=== PATIENT | male | born 1955 | race Caucasian/White ===

== ENCOUNTER → 2017-11-14 | Outpatient (CLI) | payer BC, MEDICARE ==
[~2017-11-14] MED LIST: ADVAIR HFA 230M12 GM INH; ALBUTEROL2.5 MG/0.5 INH; ALENDRONATE SOD70 MG PO; AMBIEN 10 MG TA10 MG PO; AMBIEN 5 MG TABL5 M1 PO; ASA5UEC PO; ASPIR 8181 MG PO; ASPIRIN BUFFER325 MG PO; ASPIRIN325; ASPIRIN325 PO; BARIATRIC MULTI VIT PO; BAYER CHEWABLE81 MG PO; BENICAR; BENICAR HCT 401 EACH PO; BENICAR40 MG PO; CARAFATE 1 GM TA1 G1 PO; CEFTIN 250 MG250 MG PO; CLONAZEPAM 1 MG1 M1 PO; CRESTOR; CRESTOR10 MG PO; CRESTOR5 MG PO; DOXYCYCLINE 10100 M1 PO; DULCOLAX5 MG PO; DUONEB 2.5-0.5 M3 ML INH; FARXIGA10 MG PO; FISH OIL 1,001000 M2 PO; FISH OIL 1,2001 EAC3 PO; FLORASTOR 250 MG PO; FLORASTOR250 MG PO; FOLIC ACID1 MG PO; FOSAMAX 70 MG T70 M1; FUROSEMIDE; FUROSEMIDE 80 M80 M1 PO; GLUCOSAMINE-CH1 EA15 PO; GLUCOSAMINE-CH1 EA33 PO; HUMIRA20 MG/0.4 SQ; HYDROCHLOROTHIA25 M1 PO; HYDROCHLOROTHIA25 M2 PO; HYDROCODON-ACE1 EAC4 PO; HYDROCODON-ACE1 EAC5 PO; HYDROCODONE-AP1 EAC1 PO; HYSINGLA ER40 MG PO; IBUPROFEN 800800 M1 PO; IMDUR; ISOSORBIDE MONO30 M1; KLOR-CON 1010 MEQ PO; LASIX 80 MG TAB80 MG PO; LIPITOR 20 MG T20 M1 PO; LOPRESSOR25; METHOTREXATE; METHOTREXATE 22.5 MG PO; MINOCYCLINE HC100 M2; MOTRIN IB200 MG PO; MULTI VITAMIN1 EACH PO; NEURONTIN 300300 M1 PO; NITROGLYCERIN0.4 MG SUBLING; NITROSTAT0.4 MG SL; NORCO 5-325 TA1 EACH PO; NORVASC5 MG PO; OMEGA-31000 M1 PO; OMEPRAZOLE 20 M20 M1 PO; PERCOCET 5-3251 EACH PO; POTASSIUM20 PO; PREDNISONE 10 M10 M1 PO; PREDNISONE 10 M10 MG PO; PREDNISONE 20 M20 M1 PO; PREDNISONE 5 MG5 M1 PO; PRILOSEC 20 MG20 MG PO; PRILOSEC40 MG PO; PROAIR HFA8.5 GM INH; PROBIOTIC1 EAC1 PO; RESTORIL30 MG PO; RITUXAN100 MG/10 IV; SORINE 80 MG TA80 M1 PO; SPIRIVA INH; TOPROL XL50 MG PO; TRAMADOL 50 MG50 MG PO; TYLENOL325 MG PO; VENTOLIN HFA 1818 GM INH; VITAMIN B-12500 MCG PO; VITAMIN D31000 UNI2 PO; XARELTO20 MG PO; XELJANZ5 MG PO; ZOFRAN4 MG PO; ZPAK PO; [UNRECOGNIZED DRUG - OTHER]; [UNRECOGNIZED DRUG - OTHER] PO
--- NOTE | 2017-11-16 09:00 | PAINCON ---
[place] [address] PAIN MANAGEMENT CONSULTATION Name: MATI NELSON Room: [facility].#: [id number] Admission: 11/14/17 Attend Phys: Tao Ji DO Discharge: Date of : 59 Report #: [id number] THIS REPORT FOR: //name// CC: Tao Ho DO DATE OF SERVICE: 11/14/2017 REFERRING PHYSICIAN: Marko Ho D.O. CHIEF COMPLAINT: Generalized joint pain and low back pain. HISTORY OF PRESENT ILLNESS: As you know, the patient is a morbidly obese 62-year-old male who suffers from rheumatoid arthritis, which is fairly significant with multiple changes in all the joints of the upper body and knees. He was referred initially to our service to adjust medications. He has been doing very well with adjustments in therapy. This in conjunction with his weight loss program has improved his pain overall. He returns in request of refills of medications. I advised the patient at this time that we at [facility] feel he is doing well with pain control. We will be returning his care to his PCP at this time for continuation of hydrocodone therapy. This can be provided through his primary care physician or his ophthalmic medical technician who is treating his rheumatologic issues. ALLERGIES: No known drug allergies. CURRENT MEDICATIONS: Aspirin, multivitamin, atorvastatin, clonazepam, folic acid, furosemide, hydrocodone, ibuprofen, Prilosec, potassium chloride, Xarelto, tramadol, probiotic and prednisone. SOCIAL HISTORY: The patient denies tobacco, alcohol, IV or illicit drug use. He is retired, retired years ago, unaccompanied today. IMAGING DATA: No new imaging available. PHYSICAL EXAMINATION: VITAL SIGNS: Blood pressure 134/72, pulse is 50, respiratory rate 16 and unlabored. The patient is 95% on room air, current temperature 98.6 degrees Fahrenheit, height 6 feet, 2 inch tall, weight 301 pounds and BMI calculated 39. GENERAL: Well-developed, well-nourished and well-hydrated exogenously obese 62-year-old male. He appears his stated age, placing current pain score at 7-8/10. HEENT: Normocephalic and atraumatic. Pupils equal, round and reactive to light. Extraocular muscles are intact. EXTREMITIES: Show no clubbing, no [place] [address] PAIN MANAGEMENT CONSULTATION Name: MATI NELSON Room: [facility]#: [id number] Admission: 11/14/17 Attend Phys: Tao Ji DO Discharge: Date of : 59 Report #: [id number] MUSCULOSKELETAL: There are noted deformities secondary to rheumatologic issues in the hands and the elbows, the left elbow greater than right. There is some large effusion in the area. There has also noted pain in the knees with standing. Gait is antalgic. ASSESSMENT: 1. Rheumatoid arthritis. 2. Osteoarthritis. 3. Morbid obesity. 4. Lumbosacral spondylosis without radicular symptoms. 5. Chronic intractable pain. PLAN: 1. The patient returns today in followup visit for medication management. I have advised the patient at this time that he is stabilized on medication. He is doing well with the therapy. We have tried the patient on a long acting medication formulation but we were unable to obtain this medication due to cost restrictions. The patient is a fairly poor coverage from his third green party payer in regards to long acting medications. We kept the patient on hydrocodone 10-325, no more than 6 a day and this appears to be working well for the patient. We have kept the patient on this medication for an extended period of time and it proves the patient is doing well. We recommend the patient return to his PCP for continuation of this therapy. Opioid medications are no different than treatment options for his rheumatologic issues or his underlying anticoagulant therapy and dyslipidemia therapy. He can return to see his PCP who was the original referring physician with stabilized medications for pain control for his rheumatologic issues. 2. We have provided the patient with hydrocodone 10/325 one tab every 3-1/2 hours p.r.n. for pain, #180 releases of today, 4 weeks from today, 8 weeks from today and 3 months' worth of medication. 3. The patient will return to see his PCP or his ophthalmic medical technician for continuation of medication. We at [facility] have adjusted his medications made corrections to the therapy, stabilized him on his dose, which is the request of the original referring physician. This has been completed, we now returning his care to continue the therapy. Certainly if changes need to be made, the patient can return to our clinic. <ELECTRONICALLY SIGNED> By: Tao Ji DO 11/16/17899 31 [id number] Ji DO /nt
== END ==
LOC: M.PC 00:56
DX: M06.862 Other specified rheumatoid arthritis, left knee (principal); M06.861 Other specified rheumatoid arthritis, right knee; M47.817 Spondylosis without myelopathy or radiculopathy, lumbosacral region; G89.29 Other chronic pain; E66.09 Other obesity due to excess calories; M19.90 Unspecified osteoarthritis, unspecified site

== ENCOUNTER 2018-01-05 05:19 | Emergency (ER) | payer BC, MEDICARE ==
[~2018-01-05] VITALS: Ht 188 cm; Wt 132.4 kg
[~2018-01-05 05:19] MED LIST changes: -NEURONTIN 300300 M1 PO; -NORCO 5-325 TA1 EACH PO; -PERCOCET 5-3251 EACH PO; -[UNRECOGNIZED DRUG - OTHER]
[2018-01-05 06:01] LABS: ANION GAP 10 mmol/L (7-16); BUN 18 mg/dL (7-18); CALCIUM 8.9 mg/dL (8.5-10.1); CHLORIDE 105 mmol/L (98-107); CO2 28 mmol/L (21-32); GLUCOSE 97 mg/dL (70-99); SODIUM 143 mmol/L (136-145)
[2018-01-05 06:02] LABS: ABSOLUTE BASOPHILS 0.1 thou/uL (0.0-0.2); ABSOLUTE EOSINOPHILS 0.4 thou/uL (0.0-0.7); ABSOLUTE LYMPHOCYTES 2.1 thou/uL (0.8-5.3); ABSOLUTE MONOCYTES 0.9 thou/uL (0.0-1.2); ABSOLUTE NEUTROPHILS 8.9 thou/uL (1.6-8.1); BASOPHILS 0.9 %; EOSINOPHILS 3.1 %; HEMATOCRIT 40.5 % (42.0-52.0); HEMOGLOBIN 13.5 gm/dL (14.0-18.0); LYMPHOCYTES 16.8 %; MCH 27.9 pg (26.0-34.0); MCHC 33.3 g/dL (28.0-37.0); MCV 83.7 fL (80.0-100.0); MONOCYTES 7.2 %; MPV 7.8 fl. (7.2-11.1); NUCLEATED RBCS 0 /100WBC; PLATELET COUNT* 292 thou/uL (150-400); RBC 4.84 mil/uL (4.50-6.00); RDW-CV 15.3 % (10.5-14.5); WBC 12.4 thou/uL (4.0-11.0)
[2018-01-05 06:03] LABS: INR 1.2; PROTIME 11.3 Seconds (9.20-11.50)
[2018-01-05 06:12] LABS: ALBUMIN 3.2 g/dL (3.4-5.0); ALKALINE PHOSPHATASE 71 U/L (46-116); LIPASE 497 U/L (73-393); NT-PRO BRAIN NAT PEPTIDE 441 pg/mL (<300); SGOT 33 U/L (15-37); SGPT 16 U/L (30-65); TOTAL BILIRUBIN 0.5 mg/dL (<0.1-1.0); TOTAL PROTEIN 7.1 g/dL (6.4-8.2); TROPONIN-I LEVEL <0.06 ng/mL (<0.06)
[2018-01-05 06:15] LABS: POTASSIUM 4.2 mmol/L (3.5-5.1)
--- NOTE | 2018-01-05 09:44 | EKG ---
[place] [address] ELECTROCARDIOGRAM REPORT Name: OMARMATI JADEN Room: [facility]#: [id number] Admission: 01/05/18 Attend Phys: Discharge: Date of : 59 Report #: [id number] THIS REPORT FOR: //name// [facility] ED Test Date: 2018-01-05 Test Time: 05:22:10 Pat Name: MATI NELSON Department: Room: Gender: M Truck Driver'S Offsider: CECI : 1955 Requested By: Joan Ashby Order Number: [id number] MD: Gerry Menchaca Measurements Intervals [place] Rate: 44 P: 7 [place]: 206 QRS: -23 QRSD: 133 T: 25 QT: 468 QTc: 401 Interpretive Statements Sinus bradycardia IVCD, consider incomplete RBBB Baseline wander in lead(s) III Electronically Signed On 01-05-2018 9:44:09 CDT by Gerry Menchaca [email or web address] <ELECTRONICALLY SIGNED> By: Gerry Menchaca MD, [facility] 01/05/18 0944 1 1 Gerry Menchaca MD, FACC /EPI
[2018-01-05] MEDS ORDERED: NORCO 5-325 TA1 EACH PO (10:03)
[2018-01-05] MEDS ORDERED: PERCOCET 5-3251 EACH PO (10:10)
[2018-01-05 10:44] VITALS: BP 152/81
[2018-02-07] MEDS ORDERED: TRAMADOL 50 MG50 MG PO ×2 (10:48→10:58)
[2018-02-07] MEDS ORDERED: HYDROCODON-ACE1 EAC5 PO ×2 (10:48→10:58)
[2018-02-07] MEDS ORDERED: PERCOCET 5-3251 EACH PO ×2 (10:48→10:58)
[2018-02-07] MEDS ORDERED: RITUXAN100 MG/10 IV (11:57)
[2018-04-04] MEDS ORDERED: HYDROCODON-ACE1 EAC5 PO ×2 (10:33→10:35)
[2018-04-04] MEDS ORDERED: TRAMADOL 50 MG50 MG PO (10:35)
[2018-05-30] MEDS ORDERED: TRAMADOL 50 MG50 MG PO (10:19)
[2018-05-30] MEDS ORDERED: HYDROCODON-ACE1 EAC5 PO ×2 (10:19)
[2018-07-25] MEDS ORDERED: TRAMADOL 50 MG50 MG PO (08:21)
[2018-07-25] MEDS ORDERED: HYDROCODON-ACE1 EAC5 PO ×2 (08:21)
[2018-07-25] MEDS ORDERED: NEURONTIN 300300 M1 PO (10:46)
[2018-07-25] MEDS ORDERED: [UNRECOGNIZED DRUG - OTHER] (11:19)
[2018-07-25] MEDS ORDERED: IBUPROFEN 800800 M1 PO (11:20)
== END 2018-01-05 10:45 | disposition home or self-care (01) ==
LOC: M.ERS 05:19
PROVIDERS: Emergency Medicine
DX: R10.13 Epigastric pain (principal); J44.9 Chronic obstructive pulmonary disease, unspecified; M19.90 Unspecified osteoarthritis, unspecified site; I11.0 Hypertensive heart disease with heart failure; I50.9 Heart failure, unspecified; I25.2 Old myocardial infarction; I25.10 Atherosclerotic heart disease of native coronary artery without angina pectoris; I48.91 Unspecified atrial fibrillation; Z96.641 Presence of right artificial hip joint

== ENCOUNTER → 2018-02-07 | Outpatient (CLI) | payer BC, MEDICARE ==
[~2018-02-07] MED LIST changes: +NEURONTIN 300300 M1 PO; +NORCO 5-325 TA1 EACH PO; +PERCOCET 5-3251 EACH PO; +[UNRECOGNIZED DRUG - OTHER]
--- NOTE | 2018-02-15 08:18 | PAINCON ---
[facility] [address] [place] [address] PAIN MANAGEMENT CONSULTATION Name: MATI NELSON Room: [facility].#: [id number] Admission: 02/07/18 Attend Phys: Veronique Velazquez MD Discharge: Date of : 59 Report #: [id number] THIS REPORT FOR: //name// CC: Veronique Ho DO DATE OF SERVICE: 02/07/2018 CHIEF COMPLAINT: "I have got pain in my arm. Some of the screws have come loose and I am going to go to to have it fixed." FOLLOWUP HISTORY: The patient is a 62-year-old gentleman who has been seen in the pain clinic in the past because of chronic pain associated with osteoarthritis. The patient states that he was driving. Noted some worsening of pain and discomfort in his elbow. It appeared that a screw has come loose. He has sought surgical advice from 2 surgeons at . States that in about 2 months, the two surgeons will be able to coordinate their schedule such that they could work on his left arm. He states that they will have to use cadaveric bone. Also, cables may be necessary to help reconstruct his elbow. He rates his pain as 5/10 at this juncture. Finds that use of his current medications of hydrocodone and tramadol with occasional use of OxyContin have been helpful in controlling his pain. The patient states that he has been using Xarelto. This has been provided by his cardiac doctor. He also states that he has been using [id number] ibuprofen. He states that he thinks his cardiac doctor is aware that he is using this while on Xarelto. ALLERGIES: No known drug allergies. CURRENT MEDICATIONS: Aspirin 325 mg 1 tablet daily for heart, Lipitor 20 mg, clonazepam 1 mg at bedtime for anxiety, folic acid 1 mg, Lasix a total of 160 mg daily for fluid retention, hydrocodone 10/325 1 p.o., total of 6 tablets per day, ibuprofen 800 mg b.i.d., Benicar 40 mg daily, Prilosec 20 mg daily, potassium 20 mEq total of 60 mEq daily replacement, prednisone 10 mg daily, Xarelto 20 mg daily, tramadol 50 mg q.8h. p.r.n., multivitamin, probiotic. PAST MEDICAL HISTORY: Rheumatoid arthritis, morbid obesity, atrial fibrillation, herpes zoster, hypertension, nephrolithiasis and tobacco habituation. Chronic obstructive pulmonary disease and history of congestive heart failure. PAST SURGICAL HISTORY: Repair of gangrenous ventral hernia, left arm surgery [place] [address] PAIN MANAGEMENT CONSULTATION Name: LYNYOANDYMATI JADEN Room: [facility]#: [id number] Admission: 02/07/18 Attend Phys: Veronique Velazquez MD Discharge: Date of : 59 Report #: [id number] SOCIAL HISTORY: The patient is on disability and has not worked for 9 years. REVIEW OF SYSTEMS: Fatigue, weakness. A 12-point review, wears glasses, blurred vision, glaucoma/cataracts, hearing loss/ringing in the ears, shortness of breath, heart trouble, chest pain, palpitations, shortness of breath while lying flat, wheezing, varicose veins, lightheadedness, numbness and tingling sensation, insomnia and excessive thirst. LABORATORY DATA: No new laboratory is available at the time of our interview. PAIN CLINIC ASSESSMENT: 1. History of arthritis, has been receiving infusions now, scheduled for followup at [facility]. 2. Height 6 feet 2 inches. Weight 300 pounds, BMI 38.6. 3. VITAL SIGNS: Blood pressure 115/62, pulse 94, respiratory rate 16, room air saturation 94%, temperature 99.1. Pain intensity 5-6/10. 4. Fall risk. The patient has not fallen in the last 3 months. 5. The patient on blood thinner. 6. The patient is on Xarelto for history of atrial fibrillation. States that he is followed by [facility]. 7. History of hypertension, the patient is being treated for hypertension. 8. Opioids greater than 6 weeks. The patient is on opioid greater than 6 weeks. 9. Risk assessment tool. 10. Functional assessment tool. 11. Recreational drug use. The patient denies use of recreational drugs. 12. Tobacco: The patient states he occasionally smokes a cigar. Stopped smoking cigarettes 2 years ago, has a 27-year smoking history, alcohol. Denies other than rare use of alcoholic beverages. PHYSICAL EXAMINATION: GENERAL: The patient is a well-developed, obese white male, appears his stated age. He is alert and oriented x 3. Affect is appropriate. Speech is fluent. HEENT: Normocephalic, atraumatic. Extraocular eye muscles intact. Sclerae nonicteric. Hearing within normal limits. Mucous membranes moist. NECK: Without JVD or bruits. HEART: Somewhat distant tones difficult to hear given the patient's body habitus. LUNGS: Lungs are distant and difficult to hear secondary to the patient's body habitus. ABDOMEN: Protuberant. MUSCULOSKELETAL: Appears to be within normal limits without significant kyphosis, scoliosis or lordosis. The patient's left upper extremity is bandaged from the forearm up into the shoulder area. The patient states that he has this in place to keep the bone/anatomy stable. States that there is a loose screw in the elbow and there is significant pain involved [place] [address] PAIN MANAGEMENT CONSULTATION Name: MATI NELSON Room: [facility].#: [id number] Admission: 02/07/18 Attend Phys: Veronique Velazquez MD Discharge: Date of : 59 Report #: [id number] without radicular symptoms at this juncture. The hands show rheumatological changes with ulnar deviation of his fingers and elbow secondary to prolonged history of arthritic changes. Complains of some pain in his knees. Walks with a slight antalgic gait. IMPRESSION: 1. Left arm pain, low back pain and hip pain secondary to arthritis. 2. Osteoarthritis. 3. Morbid obesity. 4. Lumbosacral spondylosis without radicular symptoms. 5. Chronic intractable pain. RECOMMENDATIONS: We discussed treatment options with the patient. The patient states that he is taking Xarelto because of atrial fibrillation. He is also not taking ibuprofen 800 mg b.i.d. [id number]. He states that his doctor, Dr. Panchal is aware of this. We have asked that he discontinue use of ibuprofen until he truly gets an okay from Dr. Panchal that it is alright to take ibuprofen in conjunction with his Xarelto. The patient states that he is being evaluated at [facility]. Two of the orthopedic doctors are trying to schedule a surgery for him within the next 2 months. He has been given a script for hydrocodone 10/325 mg. The patient will take a total of 6 tablets per day. He has also been given a script for Ultram. He will continue to take this medicine p.r.n. He has been given oxycodone 1 tablet every day p.r.n. extreme pain given that the patient has had some significant changes in the arthritic character of his arm. He will call us if he has any problems with his medications. We would like to thank you for letting us participate in his care. We hope he continues to improve. The patient has signed a contract for opioid management with the pain clinic. <ELECTRONICALLY SIGNED> By: Veronique Velazquez MD 02/15/18 0818 [id number]. Frank Velazquez MD /LEANN
== END ==
LOC: M.PC 02:06
DX: M47.897 Other spondylosis, lumbosacral region (principal); M19.012 Primary osteoarthritis, left shoulder; G89.4 Chronic pain syndrome; E66.01 Morbid (severe) obesity due to excess calories

== ENCOUNTER → 2018-04-04 | Outpatient (CLI) | payer BC, MEDICARE ==
--- NOTE | 2018-04-13 15:18 | PAINCON ---
[address] [address] PAIN MANAGEMENT CONSULTATION Name: MATI NELSON Room: [facility].#: [id number] Admission: 04/04/18 Attend Phys: Veronique Velazquez MD Discharge: Date of : 59 Report #: [id number] THIS REPORT FOR: //name// CC: Veronique Ho DO DATE OF SERVICE: 04/04/2018 FOLLOWUP COMPLAINT: "I had my surgery last week and things are going pretty good." FOLLOWUP HISTORY: The patient is a 62-year-old gentleman who has been seen and followed in the pain clinic. As you recall, he suffers from significant problems with arthritis involving his left elbow. He had surgery a number of years ago. At this juncture, pain had worsened. Over the past 5 years the plates had become less effective. He underwent a surgery last week. Overall, things have improved quite a bit. His surgeon was happy with the outcome. He has full extension of his left arm. He did not have that prior to this. He has been trying to keep his arm elevated. There is some swelling in his hand, but his has looked at the incision. Things seem like they are going well. He would like to continue with his current medications. Overall, he thinks that his pain has been reasonably well controlled with his current medical regimen of hydrocodone 10/325, tramadol and occasional use of Percocet, which was provided for him by his surgeon for postop pain control. ALLERGIES: No known drug allergies. CURRENT MEDICATIONS: Enteric coated aspirin 325 mg, Lipitor 20 mg, clonazepam 1 mg p.o. anxiety, folic acid 1 mg, Lasix 80 mg for fluid retention 160 mg daily, hydrocodone 10/325 one p.o. q. 4 hours p.r.n. pain, Benicar 40 mg daily, Prilosec 20 mg daily, oxycodone 5 mg/325 per surgeon for 4 weeks post-surgery, potassium 20 mEq, 60 total daily, prednisone 10 mg daily, Rituxan 100 mg intravenous q. 6 months, Xarelto 20 mg blood thinner. PAIN CLINIC ASSESSMENT: 1. History of osteoarthritis involving his left arm as well as arthritic changes from rheumatoid involving his hands, right elbow. 2. Height 6 feet 2 inches, weight 299 pounds, BMI is 38. 3. Vital signs: Blood pressure 116/51, heart rate 51, respiratory rate 18, room air saturation 94%, temperature 97.8. Pain score 4/10. 4. Fall risk. The patient has not fallen in the last 3 months. 5. Blood thinner. The patient is on Xarelto. 6. History of hypertension. The patient is being treated for hypertension. 7. Opioid greater than 6 weeks. The patient is on opioid therapy, which he receives from the pain clinic. He also has a few [place] [address] PAIN MANAGEMENT CONSULTATION Name: MATI NELSON Room: [facility]#: [id number] Admission: 04/04/18 Attend Phys: Veronique Velazquez MD Discharge: Date of : 59 Report #: [id number] surgeon, which would be over and above his baseline. 8. Risk assessment tool. 9. Functional assessment tool. 10. Recreational drug use. The patient denies use of recreational drugs. 11. Tobacco: The patient states he occasionally smokes a cigar, stop smoking cigarettes 2 years ago, has a 27-year smoking history. 12. Alcohol. Denies use of alcohol other than on rare occasions. PHYSICAL EXAMINATION: GENERAL: The patient is a well-developed, obese white male, appears his stated age. He is alert and oriented x 3. His affect is appropriate. Speech is fluent. His is with him. HEENT: Normocephalic, atraumatic. Extraocular eye muscles intact. Sclerae nonicteric. Hearing within normal limits. Mucous membranes are moist. The patient's face is reddened around the mouth as well as up in the area of his cheeks. The patient states that he is super sensitive to shaving and has shaved as a result of this. There is redness around his face, which he gets. He is following up with his gem expert. NECK: Without JVD or bruits. HEART: Distant, given the patient's body habitus. LUNGS: Generally clear. EXTREMITIES: Left arm wrapped. Some edema noted in the left hand. Some evidence of ecchymoses in the lower hand as well as color changes consistent with breakdown of hemoglobin trickling down into the deep tendon left hand. ABDOMEN: Protuberant. The patient has a significant hernia in the abdominal area. MUSCULOSKELETAL: The patient is without significant kyphosis, scoliosis or lordosis. Muscle strength in the lower extremities judged to be 5/5 for the major muscle groups. Hands with rheumatological changes with ulnar deviation of his fingers secondary to his prolonged arthritis. Pain in his knees. The patient walks with an antalgic gait. IMPRESSION: 1. Recent left elbow surgery/rebuilt at [facility] -- patient states that his physician who has worked on numerous continence say this is the one of the top 10 worst elbow he had ever seen. He got good and favorable repair. 2. Osteoarthritis. 3. Morbid obesity. 4. History of hiatal hernia. 5. Lumbosacral spondylosis without radicular symptoms. 6. Chronic intractable pain. RECOMMENDATION: We discussed treatment options with the patient. We will continue with his current medical regimen. He will continue with the pain pills, which his physician/orthopedic has provided for the postop pain control. He will continue with his baseline medications as well. [place] [address] PAIN MANAGEMENT CONSULTATION Name: MATI NELSON Room: [facility]#: [id number] Admission: 04/04/18 Attend Phys: Veronique Velazquez MD Discharge: Date of : 59 Report #: [id number] has any problems with his medications. Overall, things seem like they are going reasonably well. He has been given a script for his usual hydrocodone. He takes 6 tablets per day. He will call us again if he has any problems. Hopefully, we will continue to bounce back. He is looking very good. He has continued to move his arm as directed by his physician. We would recommend that he keep his arm elevated above his heart. This will decrease some of the swelling and edema in the lower extremities. They are trying to make sure that he does not get an infection. His said he looked at it today and it looks like it is doing very well. We did not open it up. We would like to thank you for letting us participate in his care. We hope he continues to improve. <ELECTRONICALLY SIGNED> By: Veronique Velazquez MD 04/13/18 1518 1523 [id number]. Frank Velazquez MD /PMT
== END ==
LOC: M.PC 02:47
DX: M47.27 Other spondylosis with radiculopathy, lumbosacral region (principal); M13.822 Other specified arthritis, left elbow; G89.4 Chronic pain syndrome; E66.01 Morbid (severe) obesity due to excess calories

== ENCOUNTER → 2018-05-30 | Outpatient (CLI) | payer BC, MEDICARE ==
--- NOTE | 2018-06-02 08:37 | PAINCON ---
[address] [address] PAIN MANAGEMENT CONSULTATION Name: MATI NELSON Room: [facility]..#: [id number] Admission: 05/30/18 Attend Phys: Veronique Velazquez MD Discharge: Date of : 59 Report #: [id number] THIS REPORT FOR: //name// CC: Veronique Ho DO DATE OF SERVICE: 05/30/2018 CHIEF COMPLAINT: "Here for medications. Things are going pretty well. My elbow is doing really well. First time, I have not had pain since my 20s." FOLLOWUP HISTORY: The patient is a 63-year-old gentleman who has been followed in the Pain Clinic because of chronic pain involving his left hip, right hip, and left arm and neuropathy, all of which are helped with his current medical regimen. The patient has lost quite a bit of weight. As you recall, he has had a gastric sleeve surgery. Feels that things are going reasonably well. He has lost significant amount of weight. He feels that tramadol and hydrocodone are beneficial. He has had no complications with their use. He is quite happy with the left shoulder and left elbow. He has had problems with his elbow since 1979. He is continuing to monitor his activity, trying to maintain his weight loss. States that he has about 15 pounds of skin to be removed. He would like to undergo that surgery in the future. Also, he is having problems with varicosities in his left leg, which are quite large and are problematic on the left thigh, anterior knee, and anterior calf area. ALLERGIES: No known drug allergies. CURRENT MEDICATIONS: Enteric aspirin 325 mg, Lipitor 20 mg, clonazepam 1 mg p.o. anxiety, folic acid 1 mg, Lasix 80 mg for fluid retention 160 mg daily, Prilosec 20 mg, hydrocodone 10/325 one p.o. q. 4-6 hours, Benicar 40 mg, oxycodone 5/325 per surgeon, potassium 20 mEq total of 60 mEq daily, prednisone 10 mg daily, Rituxan 100 mg intravenous q. 6 months, Xarelto 20 mg blood thinner. PAIN CLINIC ASSESSMENT: 1. History of osteoarthritis involving his left arm, arthritic changes involving his hands with deviation of his fingers, elbow arthritic changes, osteoarthritic changes in his knees, osteoarthritic changes in the left hip. 2. Height 6 feet 2 inches, weight 295 pounds, BMI is 38. 3. Vital signs: Blood pressure 144/72, heart rate 51, respiratory rate 16, room air saturation 94%, temperature 98.5, and oxygen saturation again was 94. Pain intensity 6-7. Baseline pain, discomfort usually 5. He notes significant improvement without pain in his left arm for the first time in tens of years. 4. Fall risk. The patient has not fallen. He does need some time to reach stabilization when going from a [place] [address] PAIN MANAGEMENT CONSULTATION Name: MATI NELSON Room: [facility]#: [id number] Admission: 05/30/18 Attend Phys: Veronique Velazquez MD Discharge: Date of : 59 Report #: [id number] 5. Blood thinner. The patient is on Xarelto. 6. Hypertension. The patient is being treated for hypertension. 7. Opioids greater than 6 weeks. The patient is receiving opioid medications through the Pain Clinic and feels that they are helpful. 8. Risk assessment tool. 9. Functional assessment tool. 10. Recreational drug use. The patient denies use of recreational drugs. 11. Tobacco: The patient states that he occasionally smokes a cigar, stopped smoking cigarettes 2 years ago, has a 27-year smoking history. 12. Alcohol: The patient denies use of the alcohol except on rare occasions. PHYSICAL EXAMINATION: GENERAL: The patient is a well-developed, well-nourished white male. Obese with decreasing weight since his gastric bypass surgery. Appears his stated age. He is alert and oriented x 3. His affect is appropriate. Speech is fluent. HEENT: Normocephalic, atraumatic. Extraocular eye muscles intact. Sclerae nonicteric. Hearing within normal limits. Mucous membranes are moist. The patient is doing well. Has less reddening around his face. NECK: Without JVD, adenopathy, or bruits. HEART: Distant heart tones given the patient's body habitus. LUNGS: Clear to auscultation without rhonchi or rales. EXTREMITIES: Left arm is increased in mobility. Has less edema in his hand. He is able to move his hand. He is having less pain and discomfort. MUSCULOSKELETAL: Without significant kyphosis, scoliosis, or lordosis. Muscle strength in the lower extremities judged to be 5-/5 for the major muscle groups. Has pain and discomfort in his right hip as well as in the left hip. Hands note rheumatological changes with ulnar deviation of his fingers secondary to prolonged arthritis. Pain in his knee. The patient has large varicosities involving his left leg in the anterior of his knee and anterior of his calf. IMPRESSION: 1. Left elbow surgery/rebuilt at , doing well with less pain. 2. Osteoarthritis involving his left hip and involving his right hip. 3. Morbid obesity, improved after gastric bypass. 4. History of hiatal hernia. 5. Lumbosacral spondylosis without radicular symptoms. 6. Chronic intractable pain. RECOMMENDATIONS: We discussed treatment options with the patient. At this juncture, he feels that things are going reasonably well. He feels his medications are working. He is not having any problems or concerns. He will continue with his medications. A script for these medications have been renewed. The patient is aware of the possible complications using opioids, which could include tolerance as well as dependence. He feels that the medications are helpful. He is able to remain [place] [address] PAIN MANAGEMENT CONSULTATION Name: OMARMATI JADEN Room: [facility]#: [id number] Admission: 05/30/18 Attend Phys: Veronique Velazquez MD Discharge: Date of : 59 Report #: [id number] continue with his medications. A script for his medications has been written. He will follow up in 2 months. <ELECTRONICALLY SIGNED> By: Veronique Velazquez MD 06/02/18 0837 [id number] [id number]. Frank Velazquez MD /nt
== END ==
LOC: M.PC 04:48
DX: M47.817 Spondylosis without myelopathy or radiculopathy, lumbosacral region (principal); M16.0 Bilateral primary osteoarthritis of hip; E66.01 Morbid (severe) obesity due to excess calories; G89.4 Chronic pain syndrome; Z79.899 Other long term (current) drug therapy

== ENCOUNTER → 2018-07-13 | Outpatient (CLI) | payer BC, MEDICARE | LOC: M.ULTRA 13:00 | DX: S91.102A Unspecified open wound of left great toe without damage to nail, initial encounter (principal); I73.9 Peripheral vascular disease, unspecified; I11.0 Hypertensive heart disease with heart failure; I50.9 Heart failure, unspecified; I48.91 Unspecified atrial fibrillation; J44.9 Chronic obstructive pulmonary disease, unspecified; M06.9 Rheumatoid arthritis, unspecified; E66.01 Morbid (severe) obesity due to excess calories; X58.XXXA Exposure to other specified factors, initial encounter; Y93.89 Activity, other specified; Y92.89 Other specified places as the place of occurrence of the external cause; Y99.8 Other external cause status ==

== ENCOUNTER → 2018-07-25 | Outpatient (CLI) | payer BC, MEDICARE ==
--- NOTE | 2018-08-30 15:56 | PAINCON ---
[address] [address] PAIN MANAGEMENT CONSULTATION Name: MATI NELSON Room: [facility].#: [id number] Admission: 07/25/18 Attend Phys: Veronique Velazquez MD Discharge: Date of : 59 Report #: [id number] THIS REPORT FOR: //name// CC: Veronique Ho DATE OF SERVICE: 07/25/2018 FOLLOWUP: Here for medication renewal. My left great toe seems to be infected. FOLLOWUP HISTORY: The patient is a 63-year-old gentleman who has been followed in the pain clinic because of pain involving his left hip, right hip, left arm and neuropathy. He continues to find these medications are helpful. He has noticed a new problem. His right great toe has some lesion on the bottom. He has noted some increased probability of infection. He has been seen by his primary physician. There is some question about it being a staph infection. He has been followed and evaluated in the wound clinic. Notes that the pain has affected his joints. As you recall, he has a left elbow replacement. Also, has had some other joints replaced. He has had some episodes of dizziness. Rates his pain as a 9/10. Overall, things are going reasonably well. His pain is about 50% improved with his current medical regimen. Notes that pain can be exacerbated by sitting and standing. ALLERGIES: NAPROSYN. CURRENT MEDICATIONS: Enteric coated aspirin 325 mg, Lipitor 20 mg, clonazepam 1 mg p.o., anxiety, folic acid 1 mg, Lasix 80 mg for fluid retention, 160 mg daily, Prilosec 20 mg, hydrocodone 10/325 one p.o. every 4-6 hours p.r.n., Benicar 40 mg, oxycodone 5/325, which were provided by surgeon. He is no longer taking that medication, potassium 20 mEq total of 60 mEq daily, prednisone 10 mg daily, Rituxan 100 mg intravenous every 6 months, Xarelto 20 mg. PAIN CLINIC ASSESSMENT/PQRS: 1. History of osteoarthritis involving his left arm with arthritic changes involving his hands with deviation of his fingers, elbows and arthritic joints. 2. Osteoarthritic changes in his knees, osteoarthritic changes in his hip. The patient does have some rheumatological symptomatology. 3. Height 6 feet 2 inches, weight 304 pounds, BMI is 40. 4. VITAL SIGNS: Blood pressure 137/83, heart rate 49, respiratory rate 16, room air saturation 97%, temperature 98.0. 5. Pain intensity 06/26. 6. Fall risk. The patient has not fallen in the last 3 months. 7. Blood thinner. The patient is on Xarelto. 8. Hypertension. The patient is being treated for hypertension. 9. Opioid therapy greater than 6 weeks. The patient is receiving opioid medications [place] [address] PAIN MANAGEMENT CONSULTATION Name: MATI NELSON Room: [facility]#: [id number] Admission: 07/25/18 Attend Phys: Veronique Velazquez MD Discharge: Date of : 59 Report #: [id number] 10. Risk assessment tool. 11. Functional assessment tool. 12. Recreational drug use: The patient denies. 13. Tobacco: The patient states that he occasionally smokes a cigar. He stopped smoking cigarettes 2 years ago. Has a 27 year smoking history. 14. Alcohol: The patient denies use of alcohol except on rare occasions. PHYSICAL EXAMINATION: GENERAL: The patient is well-developed, well-nourished white male. Obese with a decrease in weight since his gastric bypass. The patient appears his stated age. He is alert and oriented x3. His affect is appropriate. Speech is fluent. HEAD, EYES, EARS, NOSE, AND THROAT: Normocephalic, atraumatic. Extraocular eye muscles intact. Sclerae nonicteric. Hearing is within normal limits. Mucous membranes are moist. The patient is doing reasonably well. Has a left reddening around his face. NECK: Without JVD, adenopathy, or bruits. HEART: Regular rate and distant tones. Given the patient's body habitus. LUNGS: Clear to auscultation without rhonchi or rales. EXTREMITIES: Lower extremities, left arm has increased mobility. He is able to straighten it out to 180 degrees there about. MUSCULOSKELETAL: Without significant kyphosis, scoliosis or lordosis. Muscle strength in the lower extremity, 5-/5 for the major muscle groups. The patient has pain and discomfort in his right hip as well as the left hip, the hands, no rheumatological changes with ulnar deviation of his finger secondary to arthritis. 1. Knee pain. 2. Varicosities of the leg, particularly on the left. 3. The patient has a somewhat ulcerated looking lesion on his great toe, this is on the left foot. IMPRESSION: 1. Acute on chronic joint pain. 2. New problem on the left great toe. Possible staph. 3. Morbid obesity, improved by gastric bypass. 4. History of hiatal hernia. 5. Lumbar spondylosis without radicular symptoms. 6. Chronic intractable pain. RECOMMENDATION: We discussed treatment options with the patient. At this juncture, his biggest concern is that of the lesion on his left great toe. He has had a history of staph infections in the past. He is working with [facility] to be evaluated. The hope is that they are able to settle this down. The patient does have hip implants and his hips as well as in his left elbow. He will be pretty catastrophic should the skin infected. He will continue with his hydrocodone and tramadol. A script for these medications have been written, [place] [address] PAIN MANAGEMENT CONSULTATION Name: MATI NELSON Room: [facility]#: [id number] Admission: 07/25/18 Attend Phys: Veronique Velazquez MD Discharge: Date of : 59 Report #: [id number] Ultram 50 mg 1 p.o. t.i.d., hydrocodone 10 mg 1 p.o. every 4 hours p.r.n., quantity 180 been written. The patient will call us if he has any problems or concerns. He will continue with gabapentin, Neurontin 300 mg 1 p.o. t.i.d. We would like to thank you for letting us to participate in his care. We hope he continues to improve. <ELECTRONICALLY SIGNED> By: Veronique Velazquez MD 08/30/18 1556 1026 1106N. Frank Velazquez MD /LEANN
== END ==
LOC: M.PC 04:31
DX: M25.552 Pain in left hip (principal); M25.551 Pain in right hip; M79.602 Pain in left arm; E66.01 Morbid (severe) obesity due to excess calories; M47.26 Other spondylosis with radiculopathy, lumbar region; G89.4 Chronic pain syndrome

== ENCOUNTER → 2018-10-03 | Outpatient (CLI) | payer BC, MEDICARE ==
--- NOTE | ~2018-10-03 | PAINCON ---
[address] [address] PAIN MANAGEMENT CONSULTATION Name: MATI NELSON Room: [facility].#: [id number] Admission: 10/03/18 Attend Phys: Veronique Velazquez MD Discharge: Date of : 59 Report #: [id number] THIS REPORT FOR: //name// CC: Veronique Ho DATE OF SERVICE: 10/03/2018 PRIMARY CARE PHYSICIAN: Marko Ho DO CHIEF COMPLAINT: Here for medication renewal. HISTORY: The patient is a 63-year-old gentleman who has been followed in the pain clinic. As you recall, he has significant problems with his pain control. He has pain in his left hip, right hip, left arm and suffers from neuropathy. Continues to find his medications helpful. He had been treated in the past because of a staph infection. As you may recall, he had his left elbow replaced. Overall, that is working reasonably well. He has returned today for renewal of his medications. Finds that the hydrocodone, tramadol and gabapentin continue to be helpful. Rates his pain as an 8/10 at this juncture. ALLERGIES: NAPROSYN. CURRENT MEDICATIONS: Enteric coated aspirin 325 mg, Lipitor 20 mg, clonazepam 1 mg p.o., anxiety, Folic acid 1 mg, Lasix 80 mg, 160 mg daily, Prilosec 20 mg, hydrocodone 10/325 one p.o. 4-6 hours, Benicar 40 mg, potassium 20 mEq, a total of 60 mEq daily, prednisone 10 mg daily, Rituxan 100 mg intravenous every 6 months, Xarelto 20 mg. PAIN CLINIC ASSESSMENT/PQRS: 1. The patient has a history of osteoarthritis involving his left arm with arthritic changes. Has significant arthritic changes and deviation in his fingers secondary to arthritis. Has osteoarthritic changes in his knee. The patient has rheumatologic serology. 2. Height 6 feet 2 inches, weight 314 pounds, BMI 40. 3. VITAL SIGNS: Blood pressure 135/71, heart rate 43, respiratory rate ____, room air saturation 93%. Temperature 97.4. 4. Pain intensity 05/26. 5. Fall risk. The patient has not fallen in the last 3 months. 6. Blood thinner. The patient is on Xarelto. 7. Hypertension. The patient is being treated for hypertension. 8. Opioids greater than 6 weeks. The patient is receiving his medications from [facility] clinic. 9. Risk assessment tool, moderate for opioid use. 10. Functional assessment tool. 11. Recreational drug use. The patient denies [place] [address] PAIN MANAGEMENT CONSULTATION Name: MATI NELSON Room: [facility]#: [id number] Admission: 10/03/18 Attend Phys: Veronique Velazquez MD Discharge: Date of : 59 Report #: [id number] 12. Tobacco: The patient occasionally smokes a cigar. Stopped smoking cigarettes 2 years ago. Has 27-year smoking history. Reminded the patient of benefits of smoking cessation. 13. Alcohol: The patient denies use of alcohol except on rare occasions. 14. Knee pain. 15. Varicosities of leg. PHYSICAL EXAMINATION: GENERAL: The patient is well-developed, well-nourished white male. Appears his stated age. He is alert and oriented x 3. Has had a gastric bypass in the past. He continues to monitor his weight. He is alert and oriented x 3. Speech is fluent. HEENT: Normocephalic, atraumatic. Extraocular eye muscles intact. Sclerae nonicteric. Mucous membranes moist. The patient has some reddening of his face. NECK: Without JVD, adenopathy or bruits. HEART: Regular rate. Distant heart tones. Difficult to appreciate secondary to the patient's body habitus. LUNGS: Clear to auscultation without rhonchi or rales. EXTREMITIES: Upper extremity muscle strength. The patient is able to straighten his left arm ____ to about 180 degrees. MUSCULOSKELETAL: Without significant kyphosis, scoliosis or lordosis. The patient has some changes in his hands, which are compatible with rheumatological changes with ulnar deviation of his finger secondary to the arthritis. IMPRESSION: 1. Acute on chronic joint pain. 2. Morbid obesity, improved by gastric bypass. 3. Hiatal hernia. 4. Lumbar spondylosis without radicular symptoms. 5. Chronic intractable pain treated with chronic medication. RECOMMENDATIONS: We discussed treatment options with the patient. At this juncture, we will continue with his medications. A script for his medications of gabapentin 300 mg 1 p.o. t.i.d., hydrocodone 10/325 one p.o. q.3-1/2 hours p.r.n., total 180 pills. Tramadol 50 mg 1 p.o. t.i.d. The patient will call if he has any concerns. We would like to thank you for letting us participate in his care. We hope he continues to improve. By: [id number]. Frank Velazquez MD /PMT
== END ==
LOC: M.PC 09-19 05:23
DX: M47.816 Spondylosis without myelopathy or radiculopathy, lumbar region (principal); G89.4 Chronic pain syndrome; E66.01 Morbid (severe) obesity due to excess calories; K44.9 Diaphragmatic hernia without obstruction or gangrene; Z79.899 Other long term (current) drug therapy; Z68.41 Body mass index [BMI] 40.0-44.9, adult

== ENCOUNTER → 2018-11-28 | Outpatient (CLI) | payer OTHER, MEDICARE ==
--- NOTE | ~2018-11-28 | PAINCON ---
[address] [address] PAIN MANAGEMENT CONSULTATION Name: MATI NELSON [facility]#: [id number] Admission: 11/28/18 Attend Phys: Veronique Velazquez MD Discharge: Date of : 59 Report #: [id number] THIS REPORT FOR: //name// CC: Veronique Ho DATE OF SERVICE: 11/28/2018 CHIEF COMPLAINT: Still having some pain and I am here for medication renewal. FOLLOWUP HISTORY: The patient is a 63-year-old old gentleman who has a significant history for arthritis. He has had quite a bit of joint pain. Has some right knee pain at this juncture. Notes that it is very painful. He did have an injection a couple of weeks ago. Feels that may be somewhat beneficial. He rates his pain as 7/10. Is concerned about having right knee surgery. He has a number of other items he would consider having surgery on includes: 1. Right knee. 2. Loose skin. 3. Hernia repair. 4. Cholecystectomy. He is trying to prioritize which would be the most helpful. The patient did try CBD oil. He did not feel that was very helpful. States that he uses 300 mg dosing. He states that his daughter stands a lot and had swelling in her lower extremities. She used the 900 mg dosing, but he is not sure for that amount ____ going to be effective. He would like to continue with his medications of hydrocodone. ALLERGIES: NAPROSYN. MEDICATIONS: Enteric coated aspirin 325 mg, Lipitor 20 mg, clonazepam 1 mg, anxiety. Folic acid 1 mg, Lasix 80 mg, 160 mg daily, Prilosec 20 mg, hydrocodone 10/325 q. 4-6 hours, Benicar 40 mg, potassium 20 mEq, total of 60 mEq daily, prednisone 10 mg daily, Rituxan 100 mg intravenous every 6 months, and Xarelto 20 mg. PAIN CLINIC ASSESSMENT AND PQRS: 1. The patient has a history of osteoarthritis involving his left arm with arthritic changes as well as arthritic changes in his right knee. Has some deviation of his fingers to the ulnar side, which is typical for rheumatoid arthritis. 2. Osteoarthritis changes in his knee. The patient recently had an injection in the knee. 3. Height 6 feet 2 inches, weight 316 pounds, BMI is 39. 4. Vital signs: Blood pressure 142/90, heart rate 52, respiratory rate 16, room air saturation 95%. [place] 99.3. [place] [address] PAIN MANAGEMENT CONSULTATION Name: MATI NELSON Room: [facility]#: [id number] Admission: 11/28/18 Attend Phys: Veronique Velazquez MD Discharge: Date of : 59 Report #: [id number] 5. Pain intensity 7/10. 6. Fall history: The patient has not fallen. He does walk with use of his cane. He feels that his knees are grinding together when he is walking. 7. Blood thinner. The patient is on Xarelto. 8. Hypertension. The patient is being treated for hypertension. 9. Opioids therapy greater than 6 weeks. The patient receives this medication from [facility], pain clinic. 10. Risk assessment tool. 11. Functional assessment tool. 12. Recreational drug use. The patient denies use of recreational drug use. 13. Tobacco: The patient does smoke cigars. We explained the use of tobacco and its effect on the circulatory system. 14. Alcohol: The patient denies use of alcohol. PHYSICAL EXAMINATION: GENERAL: The patient is a well-developed, well-nourished, obese white male, appears his stated age. He is alert and oriented x 3. He has had gastric bypass in the past. Continues to monitor his weight. Alert and oriented x 3. HEENT: Normocephalic, atraumatic. Extraocular eye muscles are intact. Sclerae nonicteric. Mucous membranes are moist. NECK: Without adenopathy or JVD. HEART: Regular rate, distant tones difficult to appreciate secondary to the patient's body habitus. LUNGS: Generally clear, without rhonchi or rales. EXTREMITIES: Upper extremity muscle strength is judged to be 5-/5 for the major muscle groups. The patient is able to straighten his right arm to 180 degrees. This is new since his surgery. MUSCULOSKELETAL: Without significant kyphosis, scoliosis, or lordosis. The patient has changes in his hands comparable to rheumatological changes with ulnar deviation of his finger secondary to his arthritis. IMPRESSION: 1. Acute on chronic joint pain. 2. Morbid obesity, improved after gastric bypass. 3. Hiatal hernia. 4. Gallbladder disease. 5. Excessive skin. 6. Right knee problems. RECOMMENDATIONS: We discussed treatment options with the patient. At this juncture, we will continue with his medications. A script for his medications of gabapentin 300 mg 1 p.o. t.i.d., hydrocodone 10/325 one q.3-4 hours total of 180 pills, and tramadol 1 p.o. t.i.d. The patient is considering his surgical options. He does have a problem with his gallbladder. Might be a good idea to take the gallbladder out first. If he should develop a cholecystitis of some sort and ____ his elbow, hip, or his new knee that might be more problematic. [facility] [address] [place] [address] PAIN MANAGEMENT CONSULTATION Name: MATI NELSON Room: [facility]#: [id number] Admission: 11/28/18 Attend Phys: Veronique Velazquez MD Discharge: Date of : 59 Report #: [id number] He could then consider whether or not to have the excess skin removed and the knee replaced. We would like to thank you for letting us participate in his care. We hope he continues to improve. By: [id number]. Frank Velazquez MD /nt
== END ==
LOC: M.PC 11:10
DX: M25.561 Pain in right knee (principal); E66.01 Morbid (severe) obesity due to excess calories; K44.9 Diaphragmatic hernia without obstruction or gangrene; K82.9 Disease of gallbladder, unspecified; I25.10 Atherosclerotic heart disease of native coronary artery without angina pectoris; J44.1 Chronic obstructive pulmonary disease with (acute) exacerbation

== ENCOUNTER → 2019-01-23 | Outpatient (CLI) | payer OTHER, MEDICARE ==
[~2019-01-23] MED LIST changes: +PENNSAID2 GM TOP
--- NOTE | ~2019-01-23 | PAINCON ---
[address] [address] PAIN MANAGEMENT CONSULTATION Name: MATI NELSON Room: [facility].#: [id number] Admission: 01/23/19 Attend Phys: Veronique Velazquez MD Discharge: Date of : 59 Report #: [id number] THIS REPORT FOR: //name// CC: Veronique Ho DATE OF SERVICE: 01/23/2019 PRIMARY CARE PHYSICIAN: Marko Ho DO CHIEF COMPLAINT: Pain and rheumatoid arthritis. HISTORY: The patient is a 63-year-old gentleman who has been followed in the pain clinic. As you recall, he has significant arthritis. It involves his arms as well as his knee and elbows. He has returned for renewal of his medications. He rates his pain as 6-7/10 at this point. He feels his right knee is very painful. He has been using his anti-inflammatory medications. As you may recall, he had a right knee replacement. He tried gabapentin. He is not using it at this juncture. He was not sure that it provided a significant amount of pain benefit. Feels that the tramadol, hydrocodone are still helpful. Notes his pain is exacerbated with going from a sitting to a standing activity as well as activities of daily living. ALLERGIES: NAPROSYN. CURRENT MEDICATIONS: Enteric coated aspirin 325 mg, Lipitor 20 mg, clonazepam 1 mg for anxiety, folic acid 1 mg, Lasix 160 mg daily, Prilosec 20 mg, hydrocodone 10/325 q. 6 hours p.r.n., Benicar 40 mg, potassium 20 mEq, total of 60 mEq daily, prednisone 10 mg daily, Rituxan 100 mg intravenously q. 6 months, and Xarelto 20 mg. PAIN CLINIC ASSESSMENT/PQRS: 1. The patient has osteoarthritis involving his left arm, has had surgery on this. Also, has had arthritic changes in his right knee. Has some deviation of the fingers associated with the rheumatoid arthritis. 2. Osteoarthritis changes in his knee. Had an injection in his knee in the past. 3. Height 6 feet 2 inches, weight 312 pounds. BMI is 40. 4. VITAL SIGNS: Blood pressure 124/68, heart rate 47, respiratory rate 20, room air saturation is 98%. 5. Pain intensity is 6-7/10. 6. Fall risk. The patient has not fallen in the last 3 months. 7. Blood thinner. The patient is on a blood thinning medication, Xarelto for atrial fibrillation. 8. Hypertension. The patient is being treated for hypertension. 9. Opiates greater than 6 weeks. The [place] [address] PAIN MANAGEMENT CONSULTATION Name: MATI NELSON Room: [facility]#: [id number] Admission: 01/23/19 Attend Phys: Veronique Velazquez MD Discharge: Date of : 59 Report #: [id number] source. 10. Risk assessment tool, low for opioid use. 11. Functional assessment too. 12. Recreational drug use. The patient denies use of recreational drugs. 13. Tobacco: The patient states that he smokes cigars. 14. Alcohol: The patient uses rarely. PHYSICAL EXAMINATION: GENERAL: The patient is a well-developed, well-nourished white male. He is obese. He appears his stated age. He is alert and oriented x 3. His affect is appropriate. Speech is fluent. HEENT: Normocephalic, atraumatic. Extraocular eye muscles intact. Sclerae nonicteric. Mucous membranes are moist. NECK: Without adenopathy or JVD. HEART: Regular rate and distant tones. LUNGS: Clear to auscultation without rhonchi or rales. EXTREMITIES. Upper extremity muscle strength is judged to be 5-/5 on the right upper extremity. The patient has noted increased movement of his right arm to 180 degrees since his surgery. MUSCULOSKELETAL: The patient without significant scoliosis, kyphosis or lordosis. Does have some changes in his hands consistent with rheumatological changes with deviation of his fingers in the ulnar direction. IMPRESSION: 1. Acute on chronic joint pain. 2. Morbid obesity, improved after gastric bypass. 3. Hiatal hernia. 4. Gallbladder disease. 5. Excessive skin. 6. Right knee pain. RECOMMENDATION: We discussed treatment options with the patient. At this juncture, we will continue with his medications. He did try CBD oil. He did not feel that really provided a significant amount of improvement. He would like to continue with his current medications of gabapentin 300 mg 1 p.o. t.i.d., hydrocodone 10/325 one p.o. q. 3-4 hours, tramadol 1 p.o. t.i.d. A script for his medications have been rewritten. He will follow up in the future. Keeps his medications in a guarded area. He is aware that opioid medications can become less effective over a period of time secondary to intolerance. One could also develop a dependence on these medications secondary to their ability cause dependency. He feels that the medications are working reasonably well and would like to continue. Scripts have been released. By: [id number]. MD TOREY Washington
== END ==
LOC: M.PC 05:01
DX: G89.29 Other chronic pain (principal); M25.522 Pain in left elbow; M25.521 Pain in right elbow; M17.11 Unilateral primary osteoarthritis, right knee; M19.041 Primary osteoarthritis, right hand; I10 Essential (primary) hypertension; K44.9 Diaphragmatic hernia without obstruction or gangrene; F17.210 Nicotine dependence, cigarettes, uncomplicated; Z88.8 Allergy status to other drugs, medicaments and biological substances; Z79.82 Long term (current) use of aspirin; Z79.899 Other long term (current) drug therapy; Z79.891 Long term (current) use of opiate analgesic

== ENCOUNTER → 2019-03-20 | Outpatient (CLI) | payer OTHER, MEDICARE ==
--- NOTE | ~2019-03-20 | PAINCON ---
[address] [address] PAIN MANAGEMENT CONSULTATION Name: MATI NELSON Room: [facility].#: [id number] Admission: 03/20/19 Attend Phys: Veronique Velazuqez MD Discharge: Date of : 59 Report #: [id number] THIS REPORT FOR: //name// CC: Veronique Ho DATE OF SERVICE: 03/20/2019 CHIEF COMPLAINT: "I have had my knee replaced and things are getting better." FOLLOWUP HISTORY: The patient is a 63-year-old gentleman who has been followed in the pain clinic. As you may recall, he has significant problems with arthritis. Had some problems with his left elbow. He underwent surgery and has gleaned benefit from that. He recently underwent surgery involving his right knee. He has noticed that has improved. He is having pain in his left hip and left joint. Notes that the right knee, which had surgery on 02/15/2019, continues to improve. He also has some problem with his left great toe. He states that it is stiff and is locked in position. He continues to have the sharp pain in his hip. Feels that it might be secondary to some of the arthritic problems he is having. He is going to consider resuming use of biological agents to help with his arthritis. He has returned today for renewal of his medications. He feels that the hydrocodone and tramadol are helpful. ALLERGIES: NAPROSYN. CURRENT MEDICATIONS: Enteric coated aspirin 325 mg, Lipitor 20 mg, clonazepam 1 mg for anxiety, folic acid 1 mg, Lasix 160 mg daily, ____ 20 mg, hydrocodone 10/325 q. 6 hours p.r.n., Benicar 40 mg; potassium 20 mEq, total of 60 mEq daily; prednisone 10 mg daily, Rituxan 100 mg intravenous q. 6 months, Xarelto 20 mg. PAIN CLINIC ASSESSMENT AND PQRS: 1. The patient has osteoarthritis involving his left arm. He has had surgery, has arthritic changes in his right knee is status post right knee replacement. 2. Osteoarthritis involving his knees. The patient is also being treated for rheumatoid arthritis. 3. Height 6 feet 2 inches, weight 301 pounds, BMI is 38.9. 4. VITAL SIGNS: Blood pressure 114/60, heart rate 50, respiratory rate 16, room air saturation 98%, temperature 97.8. 5. Pain intensity 8-9/10. 6. Fall history: The patient has not fallen in the last 3 months. 7. Blood thinner. The patient is on a blood thinning medication. He takes Xarelto for history of atrial fibrillation. 8. Hypertension. The patient is being treated for hypertension. 9. Opioids greater than 6 weeks. The patient received medication from one source, [place] [address] PAIN MANAGEMENT CONSULTATION Name: MATI NELSON [id number] Admission: 03/20/19 Attend Phys: Veronique Velazquez MD Discharge: Date of : 59 Report #: [id number] 10. Risk assessment tool, low for opioid use. 11. Recreational drug use. The patient denies use of recreational drugs. 12. Tobacco: The patient states that he does smoke a cigar. 13. Alcohol: The patient denies other than rare use of alcoholic beverages. PHYSICAL EXAMINATION: GENERAL: The patient is a well-developed, well-nourished white male. He is obese. He appears his stated age. He is alert and oriented x 3. His affect is appropriate. Speech is fluent. HEENT: Normocephalic, atraumatic. Extraocular eye muscles intact. Sclerae nonicteric. Mucous membranes moist. NECK: Without adenopathy or JVD. HEART: History of atrial fibrillation, distant tones. LUNGS: Clear to auscultation without rhonchi or rales. EXTREMITIES: Upper extremity muscle strength is judged to be 5-/5 on the right and 4+ on the left. MUSCULOSKELETAL: Without significant scoliosis, kyphosis or lordosis. The patient's hand show chronic rheumatological changes with deviation of the fingers in the ulnar direction. IMPRESSION: 1. Acute on chronic pain. 2. Morbid obesity, improved after gastric bypass. 3. Hiatal hernia. 4. Gallbladder disease. 5. Excessive skin. 6. Right knee pain, status post right knee replacement. RECOMMENDATIONS: We discussed treatment options with the patient. At this juncture, we will continue with his medications. He feels that the pain has improved as a result of his surgeries. He finds that the tramadol, which he is using is beneficial, he continues to take 1 tablet p.o. t.i.d. Finds that the hydrocodone 10/325 one p.o. q. 4 hours p.r.n., continues to be helpful. Also, feels that overall he is able to do more. We would like to thank you for letting us participate in his care. We hope he continues to improve. By: [id number]. Frank Velazquez MD /PMT
== END ==
LOC: M.PC 05:11
DX: G89.29 Other chronic pain (principal); M25.561 Pain in right knee; M25.522 Pain in left elbow; E66.09 Other obesity due to excess calories; K44.9 Diaphragmatic hernia without obstruction or gangrene; K82.9 Disease of gallbladder, unspecified; Z96.651 Presence of right artificial knee joint; Z68.38 Body mass index [BMI] 38.0-38.9, adult

== ENCOUNTER → 2019-05-15 | Outpatient (CLI) | payer OTHER, MEDICARE ==
--- NOTE | ~2019-05-15 | PAINCON ---
[address] [address] PAIN MANAGEMENT CONSULTATION Name: MATI NELSON Room: [facility].#: [id number] Admission: 05/15/19 Attend Phys: Veronique Velazquez MD Discharge: Date of : 59 Report #: [id number] THIS REPORT FOR: //name// CC: Veronique Ho DATE OF SERVICE: 05/15/2019 CHIEF COMPLAINT: Here for medication renewal and medication management. HISTORY: The patient is a 64-year-old gentleman who has been followed in the pain clinic because of chronic pain. He suffers from rheumatoid arthritis. He has numerous joints, which are affected. Elbows have been quite problematic. The patient recently had a right knee replacement. He feels that has improved. He had surgery on 02/15/2019. He did have increased pain about 3 days ago. He rated it as an 8/10 at that point. Weather has changed somewhat and he rates his pain today as a 5. He has some left hip discomfort. He has tried to improve his leg pain by getting new shoes. States that he has a left foot insole, it was quite expensive. He used it to help decrease some of the pain on his big toe. He would like to have his medications renewed. He may consider an injection in his left hip in the future. He states that he has osteoarthritis in the left hip. ALLERGIES: NAPROSYN. CURRENT MEDICATIONS: Enteric-coated aspirin 325 mg, Lipitor 20 mg, clonazepam 1 mg for anxiety, folic acid 1 mg, Lasix 160 mg daily, hydrocodone 10/325 mg q. 6 hours, Benicar 40 mg, potassium 20 mEq, total of 60 mEq daily, prednisone 10 mg, Rituxan 200 mg intravenous q. 6 months and Xarelto 20 mg. PAIN CLINIC ASSESSMENT/PQRS: 1. The patient has osteoarthritic changes involving his left elbow and right elbow. Also, he has osteoarthritic component in his right knee. He has some osteo complaints in his left hip as well. 2. Height 6 feet 2 inches, weight 312 pounds, BMI is 40.6. 3. Vital Signs: Blood pressure 116/69, heart rate 50, respiratory rate 18, room air saturation 95%. 4. Pain intensity is 5/10. 5. Blood thinner. The patient is on a blood thinning medication. 6. Hypertension. The patient is being treated for hypertension. 7. Opioids greater than 6 weeks. The patient receives medication from one source, the pain clinic. 8. Risk assessment tool, low for opioid use. 9. Recreational drug use. The patient denies use of recreational drugs. 10. Tobacco: The patient states that he does smoke a cigar. 11. Alcohol: The patient denies [place] [address] PAIN MANAGEMENT CONSULTATION Name: MATI NELSON Room: [facility]#: [id number] Admission: 05/15/19 Attend Phys: Veronique Velazquez MD Discharge: Date of : 59 Report #: [id number] PHYSICAL EXAMINATION: GENERAL: The patient is a well-developed, well-nourished white male. He appears his stated age. He is somewhat obese. He is alert and oriented x 3. His affect is appropriate. Speech is fluent. HEENT: Normocephalic, atraumatic. Extraocular eye muscles intact. Sclerae nonicteric. Mucous membranes are moist. NECK: Without adenopathy or JVD. HEART: Regular rate. History of atrial fibrillation with distant tones. LUNGS: Clear to auscultation without rhonchi or rales. EXTREMITIES: Upper extremity muscle strength 5-/5 for the major muscle groups in the upper extremity on the right and 4+ on the left. Musculoskeletal on lower back area is judged to be 5-/5 for the major muscle groups. The patient is without significant scoliosis, kyphosis or lordosis. The patient uses hands to rock back and forth to go from a sitting to a standing position. Hands note rheumatological changes with deviation of the fingers in the ulnar direction. IMPRESSION: 1. Acute on chronic pain. 2. Morbid obesity, improved after gastric bypass. 3. Hiatal hernia. 4. Gallbladder disease. 5. Excessive skin. 6. Right knee replacement. RECOMMENDATIONS: We discussed treatment options with the patient. At this juncture, we will continue with his medications. He did have pain, which was quite problematic originally. It is improved at this point. It was down from 8-5. It involves in his left hip. He does have some osteoarthritic component. He may in the near future elect to undergo an injection in the left knee and the left hip to help with his pain. He is aware that opioid medications can be helpful. 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 Overall, he feels things are going reasonably well. He would like to continue with his medications. He would like to have the hydrocodone renewed. A script for the hydrocodone has been rewritten and he will continue with 180 tablets one p.o. q. 4 hours p.r.n. for pain. He will also continue with tramadol 50 mg t.i.d. to help control the discomfort. He will call us if he has any concerns. The patient is aware that 70,000 people last year as a result of opioid medications. We have discussed this in the past and present. By: 1328 0159N. Frank Velazquez MD /nt
== END ==
LOC: M.PC 05:04
DX: G89.29 Other chronic pain (principal); K82.9 Disease of gallbladder, unspecified; K44.9 Diaphragmatic hernia without obstruction or gangrene; L98.7 Excessive and redundant skin and subcutaneous tissue; E66.01 Morbid (severe) obesity due to excess calories; Z96.651 Presence of right artificial knee joint; Z79.899 Other long term (current) drug therapy; Z68.41 Body mass index [BMI] 40.0-44.9, adult

== ENCOUNTER → 2019-07-10 | Outpatient (CLI) | payer OTHER, MEDICARE ==
--- NOTE | ~2019-07-10 | PAINCON ---
[address] [address] PAIN MANAGEMENT CONSULTATION Name: MATI NELSON Room: [facility].#: [id number] Admission: 07/10/19 Attend Phys: Veronique Velazquez MD Discharge: Date of : 59 Report #: [id number] THIS REPORT FOR: //name// CC: Veronique Ho DO DATE OF SERVICE: 07/10/2019 CHIEF COMPLAINT: Here for medication renewal and I would like to consider having a hip injection. HISTORY: The patient is a 64-year-old gentleman who has been followed in the Pain Clinic because of chronic pain. As you recall, he suffers from significant orthopedic complications from rheumatoid arthritis. He has had a number of joints replaced. He had elbow surgery. Has had right knee replacement. He has been having some increased pain and discomfort in his right hip. He feels that this may be associated with his left knee, which was replaced some time ago. This has changed his gait somewhat. Notes that the pain is problematic. Rates his pain as a 6-7 today. He states that his baseline pain is about 5. He has been experiencing some jabbing and burning discomfort. He has been taking Xarelto. He has continued to take it today. He would like to undergo a hip injection to see whether or not this will be helpful in decreasing his discomfort. He will stop taking the Xarelto and return in the near future for evaluation of pain and discomfort in his left hip. The patient feels that his medications continue to be helpful. He is not having any complications from their use. ALLERGIES: NAPROSYN. CURRENT MEDICATIONS: Enteric coated aspirin 325 mg, Lipitor 20 mg, clonazepam 1 mg for anxiety, folic acid 1 mg, Lasix 160 mg, hydrocodone 10/325 one q. 6 hours p.r.n., Benicar 40 mg, potassium 20 mEq, total of 60 mEq daily, prednisone 10 mg, Rituxan 200 mg intravenous q. 6 months, and Xarelto 20 mg. PAIN CLINIC ASSESSMENT/PQRS: 1. The patient has some osteoarthritic changes involving his left elbow and right elbow. He has had a right knee replacement. Has some pain and osteo complaints involving his left hip. 2. Height 6 feet 2 inches, weight 315 pounds, BMI is 40.5. 3. Vital Signs: Blood pressure 125/71, heart rate 53, respiratory rate 16, room air saturation 95, temperature 98.2. 4. Pain score, 6-7/10. 5. Fall history: The patient has not fallen in the last 3 months. 6. Blood thinner. The patient is on his medication, Xarelto. He will stop this medication and return to the Pain Clinic in the future [place] [address] PAIN MANAGEMENT CONSULTATION Name: LYNMATI PITT Room: [facility]#: [id number] Admission: 07/10/19 Attend Phys: Veronique Velazquez MD Discharge: Date of : 59 Report #: [id number] injection. 7. Opioids greater than 6 weeks. The patient receives medication from one source the Pain Clinic. 8. Risk assessment tool, low for opioid use. 9. Recreational drug use. The patient denies. 10. Tobacco: The patient states that he does smoke a cigar. 11. Alcohol. The patient denies use of alcoholic beverages. PHYSICAL EXAMINATION: GENERAL: The patient is a well-developed, well-nourished white male. Appears his stated age. He is somewhat obese. He is alert and oriented x 3. His affect is appropriate. Speech is fluent. HEENT: Normocephalic, atraumatic. Extraocular eye muscles intact. Sclerae nonicteric. Mucous membranes are moist. NECK: Without adenopathy or JVD. HEART: Regular rate. History of atrial fibrillation. LUNGS: Clear to auscultation without rhonchi. EXTREMITIES: Upper extremity muscle strength judged to be 5-/5 for the major muscle groups in the upper extremity. The patient has pain on the right as well as the left side and rates this as 0.4 for muscle strength. MUSCULOSKELETAL: The lower back, judged to be 5-/5 for the major muscle groups. The patient is without significant scoliosis, kyphosis or lordosis. The patient uses hands go from a sitting to a standing position before ambulation. The patient's hand show the fifth digit some rheumatological changes with deviation of his fingers in the ulnar direction. IMPRESSION: 1. Acute on chronic pain. 2. Morbid obesity, improved after gastric bypass with excess skin. 3. Hiatal hernia. 4. Gallbladder disease. 5. Right knee replacement. RECOMMENDATIONS: We discussed treatment options with the patient. At this juncture, we will continue with his medications. A script for his medications of hydrocodone 10/325 one p.o. q.i.d., total of 180 have been written. The patient will also continue with hydrocodone for the next month. Two scripts have been issued. The patient has pain and discomfort in the left hip. He will return to the Pain Clinic, at which time, he will then undergo an injection into the affected left hip. He will stop taking his Xarelto. He will call us, if he has any concerns. [address] [address] PAIN MANAGEMENT CONSULTATION Name: MATI NELSON Room: [facility]#: [id number] Admission: 07/10/19 Attend Phys: Veronique Velazquez MD Discharge: Date of : 59 Report #: [id number] We would like to thank you for letting us participate in his care. We hope he continues to improve. By: [id number]. Frank Velazquez MD /nt
== END ==
LOC: M.PC 05:21
DX: Z76.0 Encounter for issue of repeat prescription (principal); G89.29 Other chronic pain; E66.01 Morbid (severe) obesity due to excess calories; K44.9 Diaphragmatic hernia without obstruction or gangrene; K82.9 Disease of gallbladder, unspecified; Z96.651 Presence of right artificial knee joint; Z79.899 Other long term (current) drug therapy; Z79.891 Long term (current) use of opiate analgesic

== ENCOUNTER → 2019-07-17 | Outpatient (CLI) | payer OTHER, MEDICARE ==
--- NOTE | 2019-08-08 09:09 | PAINCON ---
[address] [address] PAIN MANAGEMENT CONSULTATION Name: MATI NELSON Room: [facility].#: [id number] Admission: 07/17/19 Attend Phys: Veronique Velazquez MD Discharge: Date of : 59 Report #: [id number] THIS REPORT FOR: //name// CC: Veronique Ho DATE OF SERVICE: 07/17/2019 PRIMARY CARE PHYSICIAN: Marko Ho DO CHIEF COMPLAINT: Here for an injection because of pain in the left hip. HISTORY: The patient is a 64-year-old gentleman who has been followed in the pain clinic because of chronic pain. Suffers from rheumatoid arthritis. He has been having pain and discomfort involving his left hip. He has had right knee replacement. Has had right elbow surgery. He has noticed increased pain in the left hip area. Notes that sometimes the pain radiates into the groin area, but mostly is on the side of his hip. Pressure on the side of hip bone can reproduce a significant component of this pain. He has been off Xarelto for the last 3 days with the hopes of undergoing an injection. He does walk with a slight limp because of the pain involving the left hip. ALLERGIES: NAPROSYN. CURRENT MEDICATIONS: Enteric coated aspirin 325 mg, Lipitor 20 mg, clonazepam 1 mg for anxiety, folic acid, Lasix 160 mg, hydrocodone 10/325 q. 6 hours p.r.n., Benicar 40 mg, potassium 20 mEq, a total of 60 mEq daily, prednisone 10 mg, Rituxan 200 mg intravenous q. 6 months, Xarelto 20 mg. PAIN CLINIC ASSESSMENT AND PQRS: 1. 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 Has pain and discomfort in the left hip. 2. Height 6 feet 2 inches, weight 320 pounds, BMI is 40.0. 3. Vital signs: Blood pressure 123/73, heart rate 45, respiratory rate 16, room air saturation is 95%, temperature 97.6. 4. Pain intensity score 9/10. 5. Fall history: The patient has not fallen in the last 3 months. 6. Blood thinner. The patient has stopped taking his Xarelto with the thoughts of undergoing an injection in the area of his left hip. 7. Hypertension. The patient is being treated for hypertension. 8. Opioids greater than 6 weeks. The patient receives medication from one source, the pain clinic. 9. Risk assessment tool, low for opioid use. 10. Functional assessment tool. 11. Recreational drug [place] [address] PAIN MANAGEMENT CONSULTATION Name: MATI NELSON Room: [facility]#: [id number] Admission: 07/17/19 Attend Phys: Veronique Velazquez MD Discharge: Date of : 59 Report #: [id number] 12. Tobacco: The patient denies use of tobacco on a regular basis, but does smoke a cigar. 13. Alcohol. The patient denies use of alcoholic beverages. PHYSICAL EXAMINATION: GENERAL: The patient is a well-developed, somewhat obese white male, appears his stated age. He is alert and oriented x 3. His affect is appropriate. Speech is fluent. HEENT: Normocephalic, atraumatic. Extraocular eye muscles intact. Sclerae nonicteric. Mucous membranes are moist. NECK: Without adenopathy or JVD. HEART: Regular rate. History of atrial fibrillation. LUNGS: Generally clear to auscultation. EXTREMITIES: Upper extremity muscle strength judged to be 4+/5 for the major muscle groups in the upper extremity. The patient has pain in the left side and has some decreased range of motion in his left elbow. MUSCULOSKELETAL: The patient without significant lordosis, kyphosis or scoliosis. Does have some pain in the left hip. Palpation in the area of the greater trochanteric area in the area of bursa does cause the patient to withdrawal and phonate. The patient has rheumatological changes and deviation in his fingers in the ulnar direction. IMPRESSION: 1. Acute and chronic pain. 2. Morbid obesity, improved after gastric bypass with excess skin. 3. Hiatal hernia. 4. Gallbladder disease. 5. Right knee replacement. 6. Left hip pain in the greater trochanteric area. RECOMMENDATIONS: We discussed treatment options with the patient. Risks and benefits of an injection in the greater trochanteric area were discussed. They include but are not limited to infection, worsening pain, no improvement in pain, bleeding and the patient elects to proceed. PROCEDURE NOTE: The patient was taken to the procedure area. He was then assisted in getting on the examination table. He lay on the table in the right lateral decubitus position. His hip was sterilely prepped with a chlorhexidine solution. This was allowed to dry. A second cleansing of the area with a chlorhexidine solution was performed and allowed to dry. A 25-gauge needle was then used to make a skin wheal. After advancing the 25-gauge needle, the patient states that this did reproduce pain in the bursa area. Aspiration was negative. A total of 80 mg Depo-Medrol with an additional 3 mL of 0.5% bupivacaine was injected. The patient tolerated the procedure well. There were no complications. A total of 10 seconds fluoroscopy time was used. The patient's pain decreased to 0 at the time of discharge. [place] [address] PAIN MANAGEMENT CONSULTATION Name: MATI NELSON Room: [facility]#: [id number] Admission: 07/17/19 Attend Phys: Veronique Velazquez MD Discharge: Date of : 59 Report #: [id number] about 60-70% improvement with his pain with his current medical regimen. We would like to thank you for letting us participate in his care. He will call us if he has any concerns. He will resume his anticoagulation medication tonight. <ELECTRONICALLY SIGNED> By: Vernoique Velazquez MD 08/08/19 0909 [id number] 1550N. Frank Velazquez MD /[facility]
== END | disposition home or self-care (01) ==
LOC: M.PC 04:47
DX: M25.552 Pain in left hip (principal); M70.62 Trochanteric bursitis, left hip; G89.29 Other chronic pain; M06.9 Rheumatoid arthritis, unspecified; J44.9 Chronic obstructive pulmonary disease, unspecified; I25.10 Atherosclerotic heart disease of native coronary artery without angina pectoris; E66.01 Morbid (severe) obesity due to excess calories; Z98.84 Bariatric surgery status; Z90.49 Acquired absence of other specified parts of digestive tract; Z96.651 Presence of right artificial knee joint; Z79.899 Other long term (current) drug therapy; Z98.890 Other specified postprocedural states; Z88.8 Allergy status to other drugs, medicaments and biological substances; Z68.41 Body mass index [BMI] 40.0-44.9, adult; Z79.01 Long term (current) use of anticoagulants; Z79.82 Long term (current) use of aspirin

== ENCOUNTER → 2019-09-04 | Outpatient (CLI) | payer OTHER, MEDICARE ==
--- NOTE | 2019-09-11 09:26 | PAINCON ---
[address] [address] PAIN MANAGEMENT CONSULTATION Name: MATI NELSON Room: [facility]#: [id number] Admission: 09/04/19 Attend Phys: Veronique Velazquez MD Discharge: Date of : 59 Report #: [id number] THIS REPORT FOR: //name// CC: Veronique Ho DO DATE OF SERVICE: 09/04/2019 CHIEF COMPLAINT: Left hip pain is still problematic. HISTORY: The patient is a 64-year-old gentleman who has been seen in the pain clinic because of chronic pain. He has been having pain in his left hip. He underwent an injection in the hip at the last visit. Still feels that the pain is problematic. Rates it as an 8/10. Overall with his medication and with his activity level, he finds his pain is about 65%-70% improved with his current regimen of tramadol and hydrocodone. He has returned today for renewal of his medications. States that he is going to see his orthopedic doctor in the near future. Possibility of another option to help with his pain will be sought. The patient is using Xarelto. Feels that the tramadol and hydrocodone medication are beneficial. He is unable to take nonsteroidal anti-inflammatory medication on a regular basis secondary to the chronic use of Xarelto. ALLERGIES: NAPROSYN. CURRENT MEDICATIONS: Enteric coated aspirin 325 mg, Lipitor 25 mg, clonazepam 1 mg for anxiety, folic acid, Lasix 160 mg, hydrocodone 10/325 one p.o. q.6 hours p.r.n., Benicar 40 mg, potassium 20 mEq, total of 60 mg daily, prednisone 10 mg, Rituxan 200 mg intravenous q.6 months for rheumatoid arthritis, Xarelto. PAIN CLINIC ASSESSMENT/PQRS: 1. The patient has some osteoarthritic changes involving his left elbow, right elbow, right knee and has had right knee replacement. He is having some discomfort in his left hip. The patient is being treated for rheumatoid. 2. Height 6 feet 2 inches, weight 320 pounds, BMI is 41.1. 3. VITAL SIGNS: Blood pressure 142/75, heart rate 82, respiratory rate 16, room air saturation 94%, temperature 98.1. 4. Pain intensity 8/10. 5. Fall history: The patient has not fallen in the last 3 months. 6. Blood thinner. The patient is taking Xarelto. 7. Hypertension. The patient is being treated for hypertension. 8. Opioids greater than 6 weeks. The patient received medication from [facility] source the pain clinic. 9. Risk assessment tool, low for opioid use. 10. Functional assessment tool. 11. Recreational drugs. The patient denies [place] [address] PAIN MANAGEMENT CONSULTATION Name: MATI NELSON Room: [facility]#: [id number] Admission: 09/04/19 Attend Phys: Veronique Velazquez MD Discharge: Date of : 59 Report #: [id number] 12. Tobacco: The patient denies use of tobacco on a regular basis, but does smoke a cigar. 13. Alcohol. The patient denies use of alcoholic beverages. PHYSICAL EXAMINATION: GENERAL: The patient is a well-developed, well-nourished white male. Appears his stated age. He is alert and oriented x 3. His affect is appropriate. Speech is fluent. HEENT: Normocephalic, atraumatic. Extraocular eye muscles intact. Sclerae nonicteric. Mucous membranes are moist. NECK: Without adenopathy or JVD. HEART: Regular rate. History of atrial fibrillation. LUNGS: Generally clear to auscultation. EXTREMITIES: Upper extremity muscle strength judged to be 4+/5 for the major muscle groups in the upper extremity. The patient has some left-sided pain involving his left arm with some decreased range of motion at the left elbow. MUSCULOSKELETAL: Without significant scoliosis, kyphosis or lordosis. The patient has some pain in the left hip. Palpation in the left trochanteric area does still cause some pain and discomfort. The patient has some rheumatological changes with deviation of the ulnar direction of his fingers. IMPRESSION: 1. Emltf-et-wskpnpl pain. 2. Morbid obesity, improved after gastric bypass with hope for removal of excess skin. 3. Hiatal hernia. 4. Gallbladder disease. 5. Right knee replacement. 6. Left hip pain in the greater trochanteric area. RECOMMENDATIONS: We discussed treatment options with the patient. At this juncture, he is still having pain in the left trochanteric area. He states that he is going to see his orthopedic doctor in regards to evaluation of this pain. We did inject to see whether or not a bursa injection will be helpful. He does not feel that significantly changed the course of his pain or discomfort. Feels that the tramadol medication is helpful. Feels that the hydrocodone medication is helpful. He has returned today with the hopes of continue with the hydrocodone medication and tramadol to help quell his pain. We will renew his script for opioid medications. He is aware that opioid medications can be problematic. They can cause problems in certain people. He has not shown any signs of addiction. He has taken the medication as prescribed. Keeps his medications in a guarded area. He is aware that 70,000 people last year as a result of overdosing from drugs. We would like to thank you for letting us participate in his care. A script for hydrocodone one q.6 hours total 180 tablets [place] [address] PAIN MANAGEMENT CONSULTATION Name: OMARMATI JADEN Room: [facility]#: [id number] Admission: 09/04/19 Attend Phys: Veronique Velazquez MD Discharge: Date of : 59 Report #: [id number] patient will also continue with tramadol 50 mg 1 p.o. t.i.d. We would like to thank you for letting us participate in his care. We hope he continues to improve. <ELECTRONICALLY SIGNED> By: Veronique Velazquez MD 09/11/19 0926 1445 1506N. Frank Velazquez MD /nt
== END ==
LOC: M.PC 04:48
DX: M25.552 Pain in left hip (principal); G89.29 Other chronic pain; E66.9 Obesity, unspecified; K44.9 Diaphragmatic hernia without obstruction or gangrene; K82.9 Disease of gallbladder, unspecified; Z96.651 Presence of right artificial knee joint

== ENCOUNTER → 2019-10-30 | Outpatient (CLI) | payer OTHER, MEDICARE ==
--- NOTE | ~2019-10-30 | PAINCON ---
[address] [address] PAIN MANAGEMENT CONSULTATION Name: MATI NELSON Room: [facility].#: [id number] Admission: 10/30/19 Attend Phys: Veronique Velazquez MD Discharge: Date of : 59 Report #: [id number] THIS REPORT FOR: //name// CC: Veronique Ho DO DATE OF SERVICE: 10/30/2019 CHIEF COMPLAINT: Medications were helpful, but pain somewhat increased because of the weather. HISTORY: The patient is a 64-year-old gentleman who has been followed in the pain clinic because of chronic left hip pain as well as knee pain. He rates his pain as a 9/10. Overall, things have improved and continued to be helped by his current medications. Notes some increasing symptoms of neuropathy involving his left foot with pain. States that he fell about 2 weeks ago in the garage and continues to have pain from the fall. Notes that sitting can be problematic. Activities of daily living can be problematic. ALLERGIES: NAPROSYN. CURRENT MEDICATIONS: Enteric aspirin 325 mg; Lipitor 25 mg; Klonopin/clonazepam 1 mg p.r.n. for anxiety; folic acid; Lasix 160 mg; hydrocodone 10/325 one q.6 hours p.r.n.; Benicar 40 mg; potassium 20 mEq, total of 60 mEq daily; prednisone 10 mg; Rituxan 200 mg intravenously q.6 months for rheumatoid arthritis and Xarelto. PAIN CLINIC ASSESSMENT AND PQRS: 1. The patient has some osteoarthritic changes involving his left elbow. He has problems with his right knee and has had right knee replacement. He is being treated for rheumatoid arthritis. Continues to have pain in the left hip. 2. Height 6 feet 2 inches, weight 322 pounds, BMI is 41.5. 3. Vital Signs: Blood pressure 132/77, heart rate 53, respiratory rate 16, room air saturation 95%, temperature 98.3. 4. Pain intensity 10. 5. Fall history: The patient did fall in his garage about 2 weeks ago, did not receive medical attention. 6. Blood thinner: The patient is on Xarelto. 7. Hypertension. The patient is being treated for hypertension. 8. Opioids greater than 6 weeks. The patient received medication from [facility]. 9. Risk assessment tool, low for opioid use. 10. Functional assessment tool has been reviewed. 11. Drugs: The patient denies use of recreational drug use. 12. Tobacco: The patient denies use of tobacco on a regular [place] [address] PAIN MANAGEMENT CONSULTATION Name: MTAI NELSON Room: [facility]#: [id number] Admission: 10/30/19 Attend Phys: Veronique Velazquez MD Discharge: Date of : 59 Report #: [id number] a cigar. 13. Alcohol: The patient denies use of alcoholic beverages. PHYSICAL EXAMINATION: GENERAL: The patient is a well-developed, well-nourished white male. Appears his stated age. He is alert and oriented x 3. His affect is appropriate. Speech is fluent. HEENT: Normocephalic, atraumatic. Extraocular eye muscles intact. Sclerae nonicteric. Mucous membranes are moist. NECK: Without adenopathy or JVD. HEART: Regular rate. The patient has history of atrial fibrillation. LUNGS: Generally clear. EXTREMITIES: Upper extremity muscle strength judged to be 4+/5 for the major muscle groups in the upper extremity. The patient has some significant changes in his hands associated with rheumatoid arthritis. MUSCULOSKELETAL: Without significant kyphosis or lordosis. No obvious scoliosis. The patient complains of pain in the left hip area. Has ulnar deviation of his fingers secondary to rheumatoid arthritis. IMPRESSION: 1. Acute and chronic pain. 2. Morbid obesity, improved after gastric bypass with hope for removal of excess skin in the near future. 3. Hiatal hernia. 4. Right knee replacement. 5. Left hip pain in the greater trochanteric area. RECOMMENDATIONS: We discussed treatment options with the patient. At this juncture, we will continue with his current medicines. He feels that the hydrocodone medication is helpful. He is aware that opioid medications can be helpful, but can lose their ability to influence pain secondary to development of tolerance. He is using tramadol. He finds that this medication has some benefit as well. He has been using ibuprofen on occasion. He is aware that nonsteroidal anti-inflammatory medication in conjunction with Xarelto could be problematic. We will continue with his hydrocodone 10/325 one p.o. q.4-6 hours, total of 6 tablets per day. He will call us if he has any concerns. He is aware that opioid medications cause problems with some who took other medications. Last year, over 70,000 people as a result. He will continue to be mindful of his medications. He will call us if he has any concerns. We would like to thank you for letting us participate in his care. We hope he continues to improve. By: 1404 2057N. Frank Velazquez MD /nt
== END ==
LOC: M.PC 10:09
DX: M25.552 Pain in left hip (principal); G89.29 Other chronic pain; E66.09 Other obesity due to excess calories; K44.9 Diaphragmatic hernia without obstruction or gangrene; Z96.651 Presence of right artificial knee joint

== ENCOUNTER → 2021-01-22 | Outpatient (CLI) | payer OTHER, MEDICARE ==
[~2021-01-22] MED LIST changes: +ZOLOFT100 MG PO
== END ==
LOC: M.PC 10:58
PROVIDERS: ATTEND Anesthesiology Pain Medicine
DX: Z76.0 Encounter for issue of repeat prescription (principal); M25.562 Pain in left knee; M79.652 Pain in left thigh; M25.552 Pain in left hip; Z87.19 Personal history of other diseases of the digestive system; E66.01 Morbid (severe) obesity due to excess calories; M06.9 Rheumatoid arthritis, unspecified

== ENCOUNTER 2021-02-13 17:25 | Inpatient (IN) | payer OTHER, MEDICARE ==
[~2021-02-13] VITALS: Ht 188 cm; Wt 179.2 kg
[~2021-02-13 17:25] MED LIST changes: -DOXYCYCLINE 10100 MG PO; -ENBREL50 MG/1 ML SUBQ
[2021-02-13 17:33] VITALS: BP 147/60
[2021-02-13 21:45] VITALS: BP 111/66
[2021-02-13 21:50] VITALS: BP 125/63
[2021-02-13] MEDS ORDERED: IBUPROFEN 800800 M1 PO (22:19)
[2021-02-13] MEDS ORDERED: ENBREL50 MG/1 ML SUBQ (22:22)
[2021-02-14 00:11] VITALS: BP 89/67
[2021-02-14 04:07] VITALS: BP 130/73
[2021-02-14 04:45] LABS: CALCIUM 8.6 mg/dL (8.5-10.1); CREATININE 1.2 mg/dL (0.6-1.3); POTASSIUM 3.5 mmol/L (3.5-5.1)
[2021-02-14 04:48] LABS: ABSOLUTE BASOPHILS 0.1 thou/uL (0.0-0.2); ABSOLUTE EOSINOPHILS 0.4 thou/uL (0.0-0.7); ABSOLUTE LYMPHOCYTES 1.6 thou/uL (0.8-5.3); ABSOLUTE MONOCYTES 0.8 thou/uL (0.0-1.2); ABSOLUTE NEUTROPHILS 6.4 thou/uL (1.6-8.1); BASOPHILS 0.7 %; EOSINOPHILS 4.4 %; HEMATOCRIT 33.4 % (42.0-52.0); HEMOGLOBIN 10.4 gm/dL (14.0-18.0); LYMPHOCYTES 17.1 %; MCH 23.2 pg (26.0-34.0); MCV 74.8 fL (80.0-100.0); MPV 7.5 fl. (7.2-11.1); NUCLEATED RBCS 0 /100WBC; PLATELET COUNT* 292 thou/uL (150-400); POLYS 68.8 %; RBC 4.47 mil/uL (4.50-6.00); RDW-CV 16.7 % (10.5-14.5); WBC 9.2 thou/uL (4.0-11.0)
--- NOTE | 2021-02-14 05:30 | NUR ---
PATIENT ARRIVED ON FLOOR FROM ER AT ABOUT 2150. PATIENT ADMISSION HISTORY AND ASSESSMENT WAS COMPLETED CHARTED. IV REMAINS SALINE LOCKED. PATIENT WAS GIVEN PAIN MEDS NEEDED FOR CHRONIC PAIN DUE TO RA. WILL CONTINUE TO MONITOR.
[2021-02-14 08:30] VITALS: BP 109/60
[2021-02-14 12:00] VITALS: BP 115/59
--- NOTE | 2021-02-14 12:31 | EKG ---
[place] [address] ELECTROCARDIOGRAM REPORT Name: MATI NELSON Room: [address] ADM IN M.R.#: [id number] Admission: 02/13/21 Attend Phys: Jostin Jerome, Discharge: Date of : 59 Date of Service: 02/13/21 1733 Report #: [id number] THIS REPORT FOR: //name// [facility] ED Test Date: 2021-02-13 Test Time: 17:33:54 Pat Name: MATI NELSON Department: Room: [facility] Gender: M Creative Services Designer: SUSANNA : 1955 Requested By: Enrique Molina Order Number: [id number] MD: Wilmar Benitez Measurements Intervals [place] Rate: 55 P: 5 AR: 205 QRS: 17 QRSD: 121 T: 79 QT: 424 QTc: 406 Interpretive Statements Sinus arrhythmia IVCD, consider atypical RBBB Baseline wander in lead(s) V3,V4 Compared to ECG 01/05/2018 05:22:10 Sinus bradycardia no longer present Electronically Signed On 02-14-2021 12:30:55 CDT by Wilmar Benitez [email or web address] <ELECTRONICALLY SIGNED> By: Krish Benitez MD, [facility] 02/14/21 1230 1733 1733 Krish Benitez MD, [facility] /EPI
[2021-02-14 16:09] VITALS: BP 116/50
--- NOTE | 2021-02-14 16:40 | NUR ---
PT IS ALERT AND ORIENTED BECOMES INCREASINGLY TIRED T/O DAY THOUGH [facility] GIVEN Q4 HOURS FOR RA PAIN DUONEBS STARTED FOR WHEEZING AND COARSE LUNG SOUNDS GREATER ON THE RIGHT CT DONE AND PULMONARY CONSULTED TODAY CARDIO TO DO STRESS TEST ON TUESDAY LASIX CONTINUES WITH GOOD OUTPUT LAYING IN BED MOST OF THE DAY AND HERE CALL LIGHT IN REACH LINDA ON THE MONITOR IN 40S TO 50S WHICH IS PATIENT'S TYPICAL HR
[2021-02-15] VITALS (7 sets, daily range): BP systolic 94–108; BP diastolic 41–60
[2021-02-15 04:18] LABS: CHOLESTEROL 99 mg/dL (<200); HDL CHOLESTEROL 50 mg/dL (>40); LDL CHOLESTEROL 32 mg/dL (<100); TRIGLYCERIDE 86 mg/dL (<150); VLDL 17 mg/dL (<40)
[2021-02-15 04:38] LABS: SERUM ASSESSMENT CLEAR
--- NOTE | 2021-02-15 06:50 | NUR ---
PATIENT SLEPT PART OF THE NIGHT. IV REMAINS SALINE LOCKED. PATIENT WAS GIVEN PAIN MEDICINE ABOUT EVERY 3 TO 4 HOURS ALTERNATING TRAMADOL AND HYDROCODONE. WILL CONTINUE TO MONITOR.
[2021-02-15 08:46] LABS: CREATININE 1.3 mg/dL (0.6-1.3); MAGNESIUM 2.4 mg/dL (1.8-2.4); POTASSIUM 3.9 mmol/L (3.5-5.1)
--- NOTE | 2021-02-15 09:56 | CON ---
[address] [address] CONSULTATION Name: OMARMATI Guillermo Room: [address] IN M.R.#: [id number] Admission: 02/13/21 Attend Phys: Jostin Jerome MD Discharge: Date of : 59 Report #: [id number] THIS REPORT FOR: cc: Marko Ho Steve T. DO Biggs, F. Douglas MD [facility] ~ DOC #: [id number] Wilmar Benitez MD [facility] DATE OF CONSULTATION: 02/14/2021 HISTORY OF PRESENT ILLNESS: I was asked by Dr. Jerome to see this 65-year-old white male in cardiology consultation for evaluation and treatment of chest pain. This man also has shortness of breath. He has an interesting past medical history and that he has had what he terms two heart attacks. He had cardiac catheterization with both of those. I believe those were in 2002. They were done by Dr. Rubio and I believe they were done at [facility]. He was found to have only mild coronary disease apparently. He has an EKG that shows normal sinus rhythm with incomplete right bundle branch block, possibly an atypical right bundle branch block. He began having trouble 2 weeks ago after he got Moderna vaccine. He developed chest, neck and arm pain. I believe the pain was in both arms. His breathing also worsened. He does have a history of COPD and has seen Dr. Cade Johnson in [facility] in the past, but he has not seen him for years. He subsequently yesterday evening developed substernal sharp knife-like chest pain that is a 10 on a scale of 10. He says this is like his heart attack pain. He says it radiates across his chest. It lasted 15 to 20 minutes. It did radiate into his arms, his back, his neck and up to the top of his head. He said he not had chest pain radiating to his head in the past. He has had increasing shortness of breath for a month. Additionally, this man has hypercholesterolemia and high blood pressure and he smokes. I told him in no uncertain terms today to stop smoking, stop vaping. Additional problems include sleep apnea. He is morbidly obese. He weighs almost 400 pounds. He used to weigh 500 pounds, but got some procedure for sleep apnea and that is what caused him to lose 100 pounds. He has rheumatoid arthritis. He is said to have a history of congestive heart failure. He has been on Lasix for years. At one time, he was taking 160 mg of Lasix a day and now he is taking 40. He has essential hypertension and he has a history of atrial fibrillation. He is in sinus rhythm now. ALLERGIES: HE IS ALLERGIC TO NAPROXEN. HOME MEDICATIONS: Include hydrocodone/acetaminophen p.r.n., tramadol p.r.n., prednisone 10 mg daily, atorvastatin 20 mg daily, sertraline 100 mg daily, clonazepam 1 mg at bedtime, aspirin 325 mg daily, potassium 60 mEq daily, Benicar 40 mg daily, Xarelto 20 mg daily, Prilosec 20 mg daily and Lasix now he said 40 a day, although our records say 80. Of note is [place] [address] CONSULTATION Name: MATI NELSON Room: [address] IN [facility]#: [id number] Admission: 02/13/21 Attend Phys: Jostin Jerome MD Discharge: Date of : 59 Report #: [id number] did get better with DuoNeb treatment in the ER. FAMILY HISTORY: Unremarkable. SOCIAL HISTORY: He is . He does smoke. He does not drink and does not use drugs. PHYSICAL EXAMINATION: GENERAL: He presents as a well-developed, well-nourished, morbidly obese white male who appears minimally short of breath. VITAL SIGNS: His pulse was 60 and regular, blood pressure 130/73, respirations 18 and regular, temperature is 98.6. HEENT: His head was atraumatic. Eyes were clear. NECK: Supple. There is no jugular venous distention or hepatojugular reflux. Thyroid is not enlarged. There is no adenopathy. SKIN: Skin is warm and dry. Mucous membranes are moist. LUNGS: Examination of the lungs revealed coarse breath sounds bilaterally. There were wheezes in his entire left chest. His expiratory phase is prolonged significantly. HEART: Examination of the heart revealed normal first and second heart sound. There is soft S4. There is no S3. There are no murmurs, rubs, thrills, heaves or gallops. PMI is nondisplaced. The rhythm is regular. Rate was approximately 60. ABDOMEN: Obese, soft, nontender, no palpable masses and no organomegaly. EXTREMITIES: Examination of the extremities revealed no cyanosis, clubbing or edema. The patient mentated normally, talked normally. Moved all extremities normally. Note, there was no edema today. LABORATORY DATA: He had three negative troponins. His NT-proBNP was 145. IMAGING: His chest x-ray revealed cardiomegaly, mild vascular congestion and interstitial infiltrates, possibly edema, although this is an AP film. A previous echo from more than 5 years ago showed suboptimal record, cavity was mildly dilated. Wall thickness was normal. Systolic function was normal. There is a description in the record with today's note on the chest x-ray that describes the same infiltrates in the past and the suggestion that they are chronic infiltrates rather than edema. IMPRESSION: 1. Chest pain. 2. Shortness of breath. 3. Abnormal chest x-ray. 4. Paroxysmal atrial fibrillation. 5. Incomplete [place] [address] CONSULTATION Name: MATI NELSON Room: [address] IN .R.#: [id number] Admission: 02/13/21 Attend Phys: Jostin Jerome MD Discharge: Date of : 59 Report #: [id number] 6. Chronic obstructive pulmonary disease. 7. Rheumatoid arthritis. 8. Sleep apnea. 9. Morbid obesity. 10. History of congestive heart failure. 11. Hypertension. 12. Hypercholesterolemia. 13. Cigarette smoking. RECOMMENDATION: He is to get a repeat NT-proBNP as well as PA and lateral chest x-ray, get a Lexiscan Cardiolite stress test, pulmonary function test and echo and a repeat troponin and EKG and a fasting lipid profile. I recommend a pulmonary consult as well. Thank you very much for asking me to see the patient. If there are any questions, please feel free to contact me. Wilmar Benitez MD [facility] DFB/GAU <ELECTRONICALLY SIGNED> By: Krish Benitez MD, [facility] 02/15/21 0956 [id number]. Wilmar Benitez MD, [facility] /nt
--- NOTE | 2021-02-15 19:50 | NUR ---
PT. AOX4, VSS, PAIN UNDER CONTROL, PLACED ON 1l SUPPLEMENTAL O2 TO MAINTAIN O2 SAT LEVEL > 93%, VISISTED BY AT BEDSIDE. CALL LIGHT AND PERSONAL BELONGINGS PLACED AT BEDSIDE, PT OUT OF BED TO CHAIR. pT. BACK IN BED, RESTING WITH EYES CLOSED, IN NO APPARENT DISTRESS AT SHIFT CHANGE.
[2021-02-16 03:56] VITALS: BP 98/51
--- NOTE | 2021-02-16 05:27 | NUR ---
PT IS ABLE TO COMMUNICATE HIS NEEDS TO STAFF EFFECTIVELY. CURRENT PAIN MEDICATION REGIMEN HAS BEEN ADEQUATE FOR CONTROLLING HIS PAIN UP TO THIS TIME. HE HAS BEEN NPO SINCE MIDNIGHT FOR A POSSIBLE STRESS TEST LATER TODAY. PT IS SOMEWHAT XSMG-NO-CBCVCJB BUT DOES NOT HAVE PROBLEMS COMMUNICATING WITH STAFF. PT WEARING NC AT NIGHT, BUT REFUSING BIPAP.
[2021-02-16 08:22] VITALS: BP 108/54
--- NOTE | 2021-02-16 09:47 | EKG ---
[place] [address] ELECTROCARDIOGRAM REPORT Name: MATI NELSON Room: [address] ADM IN M.R.#: [id number] Admission: 02/13/21 Attend Phys: Jostin Jerome, Discharge: Date of : 59 Date of Service: 02/14/21 1527 Report #: [id number] THIS REPORT FOR: //name// [facility] Test Date: 2021-02-14 Test Time: 15:27:37 Pat Name: MATI OMAR Department: Room: [address] Gender: M Neonatal Intensive Care Unit Nurse: MIRANDA : 1955 Requested By: Krish Benitez Order Number: [id number] Marisa MD: Gerry Menchaca Measurements Intervals [place] Rate: 48 P: 34 CO: 229 QRS: -5 QRSD: 122 T: 77 QT: 461 QTc: 412 Interpretive Statements Sinus bradycardia Borderline prolonged CO interval IVCD, consider atypical RBBB Compared to ECG 02/13/2021 17:33:54 rate has slowed Electronically Signed On 02-16-2021 9:46:52 CDT by Gerry Menchaca [email or web address] <ELECTRONICALLY SIGNED> By: Gerry Menchaca MD, [facility] 02/16/21 0946 1527 1527 Gerry Menchaca MD, [facility] /EPI
--- NOTE | 2021-02-16 13:14 | NUR ---
Pt is A&O. Resides at home with , in room at bedside. Pt is independent. Pt has a cane that he can use PRN. No home o2. Hx of cpap, stopped using some years ago, states he may need to get a new one. Pt is current with [facility] and wants to resume at [facility]. Hx of skilled at [facility]. Goal is home at [place], with HH. Stress test today. Anticipate dc tomorrow.
[2021-02-16 13:16] VITALS: BP 98/51
--- NOTE | 2021-02-16 13:41 | NUR ---
Nutrition: Pt admitted with HF. H/o bariatric surgery, OBE, COPD, afib. Seen for high BMI, wt 395#. Pt is very familiar with his bariatric diet. He stated he still eats small volumes of food, no sweets, high protein. When he had his surgery, he lost >200# (500# down to 288#), but has regained some this past year d/t hip surgery and being physically inactive. He was very stringent with his post-op diet before, keeping food logs. He stated he just needs to get more active again. Currently, NPO. Albumin 3.9. He also did not have his arthritis meds for awhile, but has them now. I provided him with some wt management tips/hondouts. RD contact info provided as well. Consider mild nutrition risk.
[2021-02-16 13:50] LABS: ABSOLUTE BASOPHILS 0.1 thou/uL (0.0-0.2); ABSOLUTE EOSINOPHILS 0.6 thou/uL (0.0-0.7); ABSOLUTE LYMPHOCYTES 1.1 thou/uL (0.8-5.3); ABSOLUTE MONOCYTES 0.8 thou/uL (0.0-1.2); BASOPHILS 0.9 %; EOSINOPHILS 7.3 %; HEMOGLOBIN 11.6 gm/dL (14.0-18.0); LYMPHOCYTES 12.4 %; MCH 23.4 pg (26.0-34.0); MCHC 31.2 g/dL (28.0-37.0); MONOCYTES 9.3 %; MPV 7.4 fl. (7.2-11.1); NUCLEATED RBCS 0 /100WBC; PLATELET COUNT* 286 thou/uL (150-400); POLYS 70.1 %; RBC 4.93 mil/uL (4.50-6.00); RDW-CV 16.1 % (10.5-14.5); WBC 8.6 thou/uL (4.0-11.0)
[2021-02-16 14:01] LABS: APTT 29.6 Seconds (25.0-31.3); INR 1.2; PROTIME 12.3 Seconds (9.20-11.50)
[2021-02-16 14:08] LABS: ALBUMIN 3.5 g/dL (3.4-5.0); CALCIUM 8.6 mg/dL (8.5-10.1); CREATININE 1.1 mg/dL (0.6-1.3); POTASSIUM 4.4 mmol/L (3.5-5.1); TOTAL BILIRUBIN 0.5 mg/dL (<0.1-1.0); TOTAL PROTEIN 7.2 g/dL (6.4-8.2)
--- NOTE | 2021-02-16 14:22 | 2DMMODE ---
[place] [address] 2 D/M-MODE ECHOCARDIOGRAM Name: MATI NELSON Room: [address] IN .R.#: [id number] Admission: 02/13/21 Attend Phys: Jostin Jerome, Discharge: Date of : 59 Date of Service: 02/16/21 1422 Report #: [id number] THIS REPORT FOR: cc: Marko Ho,Gerry Vera MD [facility] ~ APPROVED REPORT Study performed: 02/16/2021 10:43:34 EXAM: Comprehensive 2D, Doppler, and color-flow Echocardiogram Patient Location: In-Patient Room #: [facility] Status: routine BSA: 2.90 HR: 49 bpm BP: 98/51 mmHg Rhythm: NSR Other Information Study Quality: Adequate Indications Dyspnea Chest Pain 2D Dimensions IVSd: 12.27 (7-11mm) LVOT Diam: 21.92 (18-24mm) LVDd: 45.19 mm PWd: 12.34 (7-11mm) Ascending Ao: 31.91 (22-36mm) LVDs: 32.54 (25-40mm) Aortic Root: 33.53 mm Volumes Left Atrial Volume (Systole) LA ESV Index: 23.30 mL/m2 Aortic Valve AoV Peak Xander.: 1.69 m/s AO Peak Gr.: 11.38 mmHg LVOT Max P.56 mmHg AO Mean Gr.: 6.39 mmHg LVOT Mean P.62 mmHg LVOT Max V: 1.18 m/s AO V2 VTI: 37.76 cm LVOT Mean V: 0.74 m/s DWAIN (VTI): 2.51 cm2 LVOT V1 VTI: 25.15 [place] [address] 2 D/M-MODE ECHOCARDIOGRAM Name: MATI NELSON Room: [address] IN .R.#: [id number] Admission: 02/13/21 Attend Phys: Jostin Jerome, Discharge: Date of : 59 Date of Service: 02/16/21 1422 Report #: [id number] Mitral Valve E/A Ratio: 0.73 MV Decel. Time: 332.46 ms MV E Max Xander.: 0.69 m/s MV PHT: 96.41 ms MVA (PHT): 2.28 cm2 TDI E/Lateral E': 6.90 E/Medial E': 11.50 Medial E' Xander.: 0.06 m/s Lateral E' Xander.: 0.10 m/s Pulmonary Valve PV Peak Xander.: 1.20 m/s PV Peak Gr.: 5.74 mmHg Tricuspid Valve RAP Estimate: 5.00 mmHg TR Peak Gr.: 32.91 mmHg RVSP: 37.00 mmHg PA Pressure: 37.00 mmHg Left Ventricle The left ventricle is normal size. There is normal LV segmental wall motion. Mild concentric left ventricular hypertrophy. Left ventricular systolic function is normal. The left ventricular ejection fraction is within the normal range. LVEF is 55-60%. Grade I - abnormal relaxation pattern. Right Ventricle The right ventricle is normal size. The right ventricular systolic function is normal. Atria The left atrium size is normal. The right atrium size is normal. Aortic Valve The aortic valve is normal in structure. No aortic regurgitation is present. There is no aortic valvular stenosis. Mitral Valve The mitral valve is normal in structure. Trace mitral regurgitation. No evidence of mitral valve stenosis. Tricuspid Valve The tricuspid valve is normal in structure. [place] [address] 2 D/M-MODE ECHOCARDIOGRAM Name: MATI NELSON Guillermo Room: [address] IN [facility]#: [id number] Admission: 02/13/21 Attend Phys: Jostin Jerome, Discharge: Date of : 59 Date of Service: 02/16/21 1422 Report #: [id number] regurgitation. estimated pa pressure 35 mm Hg Pulmonic Valve The pulmonary valve is normal in structure. Trace pulmonic regurgitation. Great Vessels The aortic root is normal in size. IVC is not well visualized. Pericardium There is no pericardial effusion. <Conclusion> Mild concentric left ventricular hypertrophy. LVEF is 55-60%. Mild tricuspid regurgitation. estimated pa pressure 35 mm Hg <ELECTRONICALLY SIGNED> By: Gerry Menchaca MD, FACC 02/16/21 1422 1422 142 Gerry Menchaca MD, FACC /INF
[2021-02-16 17:07] VITALS: BP 109/54
[2021-02-16 19:55] VITALS: BP 97/50
--- NOTE | 2021-02-16 20:00 | NUR ---
Pt remained A&Ox4 for entire shift. Vital signs stable. Pt pleasant with staff. Pt off unit for stress test for part of the day. Pt given meds per DEC. at bedide for most of the day. Bed in low position, call light within reach.
[2021-02-16 23:16] VITALS: BP 115/48
[2021-02-17] VITALS (11 sets, daily range): BP systolic 96–134; BP diastolic 42–68
--- NOTE | 2021-02-17 03:09 | NUR ---
ASSUMED CARE OF PT AT 1900. PT IS ALERT AND ORIENTED. VSS. PERRSTEFANO. PT IS IN SINUS RYTHM ON THE TELEMETRY. PT IS RESTING COMFORTABLY IN BED. RESPIRATIONS ARE EVEN AND NONLABORED. WILL CONTINUE TO MONITOR PT.
[2021-02-17 06:04] LABS: ABSOLUTE EOSINOPHILS 0.2 thou/uL (0.0-0.7); ABSOLUTE LYMPHOCYTES 1.4 thou/uL (0.8-5.3); ABSOLUTE MONOCYTES 0.6 thou/uL (0.0-1.2); ABSOLUTE NEUTROPHILS 6.7 thou/uL (1.6-8.1); BASOPHILS 0.4 %; EOSINOPHILS 2.6 %; HEMATOCRIT 33.3 % (42.0-52.0); HEMOGLOBIN 10.5 gm/dL (14.0-18.0); LYMPHOCYTES 15.6 %; MCH 23.7 pg (26.0-34.0); MCHC 31.6 g/dL (28.0-37.0); MCV 74.9 fL (80.0-100.0); MONOCYTES 6.7 %; MPV 7.7 fl. (7.2-11.1); NUCLEATED RBCS 0 /100WBC; PLATELET COUNT* 260 thou/uL (150-400); POLYS 74.7 %; RBC 4.45 mil/uL (4.50-6.00)
[2021-02-17 06:22] LABS: ALBUMIN 3.1 g/dL (3.4-5.0); CALCIUM 8.5 mg/dL (8.5-10.1); CREATININE 1.3 mg/dL (0.6-1.3); POTASSIUM 4.6 mmol/L (3.5-5.1); TOTAL BILIRUBIN 0.4 mg/dL (<0.1-1.0); TOTAL PROTEIN 7.1 g/dL (6.4-8.2)
[2021-02-17] MEDS ORDERED: DOXYCYCLINE 10100 MG PO (09:55)
--- NOTE | 2021-02-17 12:10 | CARDNUC ---
[place] [address] CARDIAC NUCLEAR IMAGING REPORT Name: MATI NELSON Room: [address] IN [facility]#: [id number] Admission: 02/13/21 Attend Phys: Jostin Jerome, Discharge: Date of : 59 Date of Service: 02/17/21 1209 Report #: [id number] THIS REPORT FOR: cc: Marko Ho,Marko Meza,Andrey Bae MD [facility] ~ APPROVED REPORT Imaging Protocol: Stress Tc-99m/Rest Tc-99m 2 days Study performed: 02/16/2021 12:28:36 Indication: Chest pain, dyspnea. Patient Location: In-Patient Room #: 213 Stress Tech: Kaylene Hernandez Stress Nurse: Kathy Hernandez RN NM Tech:LAKIA Cloud Ht: 6 ft 2 in Wt: 380 lbs BSA: 2.86 m2 BMI: 48.78 Medical History Medical History: Chest pain, dyspnea, CHF, HX pericarditis, bradycardia, RBBB, hypotension, hypertension, CAD s/p IN, catherization, COPD, neck pain and arm pain, AMALIA, RA, HX AFib, Vape smoking, hip and knee replacement, morbid obesity. Medications: ASA 81 mg, Losartan K+, K-Dur, Xarelto, Atorvastatin, hydralazine, home meds include Lasix. Allergies: Naproxen Cardiac Risk Factors: Age, Current Smoker (Vape), HTN, Hyperlipidemia, SOB, CHF, HX AFib, RBBB, Bradycardia, morbid obesity. Previous Cardiac Procedures: Myocardial infarction, catherization Pretest Chest Pain Characteristics: No chest pain Exercise History: Sedentary Physical Disabilities: Hip/knee replacement, morbid obesity, AFib. Meds Held (24 hrs): None Resting Data Rest SPECT myocardial perfusion imaging was performed in supine position 30 minutes following the intravenous injection of 33.2 mCi of Tc-99m Sestamibi. Time of rest injection: 0900 Date: 02/17/2021 [place] [address] CARDIAC NUCLEAR IMAGING REPORT Name: MATI NELSON Room: [address]#: [id number] Admission: 02/13/21 Attend Phys: Jostin Jerome, Discharge: Date of : 59 Date of Service: 02/17/21 1209 Report #: [id number] The images were gated to evaluate regional wall motion and calculate left ventricular ejection fraction. Administration Route: IV Administration Site: Left Arm Pharmacologic Stress Pharmacologic stress test was performed by injecting Regadenoson 0.4 mg IV push over 10-15 seconds immediately followed by the intravenous injection of 30.9 mCi of Tc-99m Sestamibi. Time of stress injection: 1145 Date: 02/16/2021 Administration Route: IV Administration Site: Left Arm Gated Stress SPECT was performed 40 minutes after stress injection. The images were gated to evaluate regional wall motion and calculate left ventricular ejection fraction. Stress only was performed in the Supine position. Stress Test Details Stress Test: Pharmacologic stress testing performed using 0.4 mg of regadenoson per 5 mL given IV over 10 seconds. Reason for pharmacologic stress test: Hip/knee replacement, morbid obesity, AFib.. HR Max Heart Rate (APMHR): 157 bpm Resting HR: 50 bpm Target HR (85% APMHR): 133 bpm Max HR Achieved: 85 bpm % of APMHR: 54 Recovery HR: 66 bpm BP Resting BP: 128/76 mmHg Max BP: 138/67 mmHg Recovery BP: 143/67 mmHg ECG Resting ECG: Sinus Rhythm Stress ECG: Sinus Rhythm ST Change: None Arrhythmia: None Recovery ECG: Sinus Rhythm Recovery ST Change: None Recovery Arrhythmia: None Clinical Reason for Termination: Completed protocol Stress Symptoms: Dyspnea, chest tightness 01/24. [place] [address] CARDIAC NUCLEAR IMAGING REPORT Name: MATI NELSON Room: [address] IN .#: [id number] Admission: 02/13/21 Attend Phys: Jostin Jerome, Discharge: Date of : 59 Date of Service: 02/17/21 1209 Report #: [id number] Exercise duration: 00 min 00 sec Exercise capacity: 1.00 METs The patient had 4 out of 10 chest tightness with Lexiscan infusion. Nurse Comments A 65 year old male inpatient presented for a sitting Lexiscan. Test well tolerated. Recovery unremarkable. Patient was stable and stated he felt good when escorted via wheelchair to Nuclear Medicine for imaging. Stress ECG Conclusion Baseline twelve-lead EKG shows sinus rhythm without significant ST segment abnormality. EKGs obtained during and post Lexiscan infusion show sinus rhythm with no significant ST segment changes when compared to baseline. There were no stress-induced arrhythmias. Study Quality Study: Fair Artifact: Moderate Diaphragmatic artifact Study Data At rest, the left ventricular ejection fraction was 74%.. Post stress, the left ventricular ejection was 59%.. TID = 0.93. Perfusion Perfusion images show some evidence of document attenuation artifact. Additionally there is a moderate-sized mild intensity reversible defect involving the mid to distal inferior and inferoseptal wall. No other significant fixed or reversible defects are identified. Wall Motion Global LV systolic function is preserved. Nuclear Conclusion ECG Findings: negative for ischemia Clinical Findings: equivocal Nuclear Findings: positive for ischemia Exercise Capacity: not assessed Left Ventricular Function: Preserved Risk Study: moderate Perfusion images suggest ischemia in the mid to distal inferior wall. Global LV systolic function is preserved. This is a moderate risk [address] [address] CARDIAC NUCLEAR IMAGING REPORT Name: MATI NELSON Room: [address] IN [facility]#: [id number] Admission: 02/13/21 Attend Phys: Jostin Jerome, Discharge: Date of : 59 Date of Service: 02/17/211208 Report #: [id number] study. <Conclusion> Baseline twelve-lead EKG shows sinus rhythm without significant ST segment abnormality. EKGs obtained during and post Lexiscan infusion show sinus rhythm with no significant ST segment changes when compared to baseline. There were no stress-induced arrhythmias. <ELECTRONICALLY SIGNED> By: Andrey Panchal MD, FACC 02/17/211208 08 08 Andrey Panchal MD, FACC /INF
--- NOTE | 2021-02-17 13:26 | NUR ---
Anticipate dc to home today. CM to check with pulm to see if Pt need a cpap, CM faxed referral to Natalie at [facility], to determine if Pt would need a new sleep study. Faxed HH resumption orders to [facility]
[2021-02-17 14:28] LABS: CALCIUM 8.9 mg/dL (8.5-10.1); CREATININE 1.2 mg/dL (0.6-1.3); POTASSIUM 5.2 mmol/L (3.5-5.1)
--- NOTE | 2021-02-17 16:22 | CARD ---
[address] [address] CARDIAC CATH REPORT Name: MATI NELSON Room: [address] IN [facility]#: [id number] Admission: 02/13/21 Attend Phys: Jostin Jerome MD Discharge: Date of : 59 Report #: [id number] THIS REPORT FOR: cc: Marko Ho Steve T. DO Liston, Michael J. MD [facility] ~ APPROVED REPORT Study performed: 02/17/2021 14:48:25 Patient Details Patient Status: In-Patient Room #: The patient is a 65 year-old male Event Personnel Andrey Panchal Director Of Strategy & Mobile, Lynne Mcpherson RN RN, Amara Hoyt RTR Garth Wallis Brad RCIS Monitor Procedure Narrative The patient was brought electively to the Cardiac Catheterization Laboratory and was prepped and draped in a sterile manner. The right femoral was infiltrated with subcutaneous anesthesia. IV conscious sedation was used throughout procedure with appropriate monitoring and was performed in the presence of a registered nurse who was an independent trained observer other than the physician performing the procedure. A [place] 6 FR sheath was inserted into the right femoral artery. Coronary angiography was performed using coronary diagnostic catheters. The right coronary system was accessed and visualized with a JR4 catheter. The left coronary system was accessed and visualized with a JL4 catheter. The left ventricle was accessed and visualized with a Pig Tail catheter. Left ventricular/Aortic Valve gradient assessed via catheter pullback. Left ventriculogram was performed in YANG projection. Pre-demployment femoral angiogram was performed . Closure device was deployed with a Fr Mynx. The patient tolerated the procedure well and there were no complications associated with the procedure. There was no hematoma. Intraoperative Conscious Sedation Sedation start time: 1521 Case end Time: 1532 Fentanyl 25 mcg Versed 1 mg Fluoro Time: 1.8 minutes Dose: DAP 46505 cGycm2 1241 [place] [address] CARDIAC CATH REPORT Name: MATI NELSON Room: [address] IN [facility]#: [id number] Admission: 02/13/21 Attend Phys: Jostin Jerome MD Discharge: Date of : 59 Report #: [id number] Contrast Type and Amount: Visipaque 100 ml Diagnostic Cath Left Main The left main coronary artery is normal and bifurcates into left anterior descending and circumflex coronary artery. LAD The left anterior descending coronary artery has mild less than 10% plaquing in the proximal portion. The midportion appears to be mildly plaqued without hemodynamically significant stenoses. Diagonal 1 The first diagonal branch appears to be free of significant disease. Circumflex The circumflex coronary artery is mildly less than 10% plaque proximally. There is a focal 40% plaque in the midportion. OM1 A large bifurcating obtuse marginal branch is free of significant disease. Right Coronary The right coronary artery exhibits minimal plaquing in the proximal and midportion. Distally the vessel is free of significant disease. R PDA A small right PDA is free of significant disease. RPLV A very small right posterior lateral LV branch is free of significant disease. Left Ventriculography The left ventricle is normal in size with normal contractility. The left ventricular ejection fraction is estimated to be 60%. Hemodynamics The aortic pressure is 126/67 mmHg with a mean of 89 mmHg. The left ventricular pressure is 138/9 mmHg with a mean of mmHg. The left ventricular end diastolic pressure is 27 mmHg. Conclusion 1. Minimal nonocclusive coronary artery plaquing without hemodynamically significant stenoses. 2. Normal left ventricular systolic function. 3. Moderately elevated left ventricular end-diastolic pressure. Recommendations 1. Continue medical management and aggressive risk factor modification. <ELECTRONICALLY SIGNED> By: Andrey Panchal MD, FACC 02/17/21 1622 21 162Micmercy Panchal MD, FACC /INF
--- NOTE | 2021-02-18 01:00 | NUR ---
ASSUMED CARE OF PT AT 1900. PT IS ALERT AND ORIENTED. VSS. PERJENIFER. PT IS ON ROOM AIR. RIGHT GROIN IS WITHOUT HEMATOMA. PT IS ON A NOC OX. PT IS IN SINUS RYTHM ON THE TELEMETRY. PT IS RESTING COMFORTABLY IN BED. RESPIRATIONS ARE EVEN AND NONLABORED. WILL CONTINUE TO MONITOR PT.
[2021-02-18 07:13] LABS: ABSOLUTE BASOPHILS 0.1 thou/uL (0.0-0.2); ABSOLUTE EOSINOPHILS 0.4 thou/uL (0.0-0.7); ABSOLUTE LYMPHOCYTES 1.5 thou/uL (0.8-5.3); ABSOLUTE MONOCYTES 0.7 thou/uL (0.0-1.2); BASOPHILS 0.9 %; HEMATOCRIT 32.5 % (42.0-52.0); HEMOGLOBIN 10.2 gm/dL (14.0-18.0); LYMPHOCYTES 19.6 %; MCH 23.5 pg (26.0-34.0); MCHC 31.4 g/dL (28.0-37.0); MCV 75.1 fL (80.0-100.0); MONOCYTES 8.7 %; MPV 7.4 fl. (7.2-11.1); NUCLEATED RBCS 0 /100WBC; PLATELET COUNT* 259 thou/uL (150-400); POLYS 65.8 %; RBC 4.33 mil/uL (4.50-6.00); RDW-CV 16.1 % (10.5-14.5); WBC 7.6 thou/uL (4.0-11.0)
[2021-02-18 07:24] LABS: CALCIUM 8.6 mg/dL (8.5-10.1); CREATININE 1.1 mg/dL (0.6-1.3); MAGNESIUM 2.3 mg/dL (1.8-2.4)
[2021-02-18 07:31] LABS: POTASSIUM 4.2 mmol/L (3.5-5.1)
[2021-02-18 08:00] VITALS: BP 146/65
== END 2021-02-18 11:45 | disposition home health service (06) | DRG 286 ==
LOC: M.ERS 17:25 → M.TBA-ER 18:33 → M.2W 18:33
PROVIDERS: Internal Medicine; Internal Medicine Cardiovascular Disease; Internal Medicine Critical Care Medicine; ADMIT Internal Medicine; ATTEND Internal Medicine
PROC: B211YZZ Fluoroscopy of Multiple Coronary Arteries using Other Contrast (ICD-10-PCS; principal; 2021-02-17)
PROC: B41FYZZ Fluoroscopy of Right Lower Extremity Arteries using Other Contrast (ICD-10-PCS; principal; 2021-02-17)
PROC: 4A023N7 Measurement of Cardiac Sampling and Pressure, Left Heart, Percutaneous Approach (ICD-10-PCS; principal; 2021-02-17)
PROC: B215YZZ Fluoroscopy of Left Heart using Other Contrast (ICD-10-PCS; principal; 2021-02-17)
DX: I25.119 Atherosclerotic heart disease of native coronary artery with unspecified angina pectoris (principal); J96.01 Acute respiratory failure with hypoxia; I50.33 Acute on chronic diastolic (congestive) heart failure; J18.9 Pneumonia, unspecified organism; D84.9 Immunodeficiency, unspecified; Z68.43 Body mass index [BMI] 50.0-59.9, adult; J44.0 Chronic obstructive pulmonary disease with (acute) lower respiratory infection; M06.9 Rheumatoid arthritis, unspecified; I48.0 Paroxysmal atrial fibrillation; I45.10 Unspecified right bundle-branch block; Z96.641 Presence of right artificial hip joint; I11.0 Hypertensive heart disease with heart failure; E66.01 Morbid (severe) obesity due to excess calories; E78.00 Pure hypercholesterolemia, unspecified; F17.210 Nicotine dependence, cigarettes, uncomplicated; I25.2 Old myocardial infarction; Z79.01 Long term (current) use of anticoagulants

== ENCOUNTER → 2021-02-13 | Outpatient (CLI) | payer OTHER, MEDICARE ==
[~2021-02-13] MED LIST changes: -ASA5UEC PO; +ASPIRIN EC325 M1 PO; +DOXYCYCLINE 10100 MG PO; +ENBREL50 MG/1 ML SUBQ; -PRILOSEC 20 MG20 MG PO; +PRILOSEC OTC20 MG PO
[2021-02-13 16:29] LABS: ABSOLUTE BASOPHILS 0.1 thou/uL (0.0-0.2); ABSOLUTE EOSINOPHILS 0.2 thou/uL (0.0-0.7); ABSOLUTE LYMPHOCYTES 0.9 thou/uL (0.8-5.3); ABSOLUTE MONOCYTES 0.6 thou/uL (0.0-1.2); ABSOLUTE NEUTROPHILS 8.1 thou/uL (1.6-8.1); BASOPHILS 0.9 %; EOSINOPHILS 1.8 %; HEMATOCRIT 37.7 % (42.0-52.0); HEMOGLOBIN 11.6 gm/dL (14.0-18.0); LYMPHOCYTES 9.4 %; MCHC 30.7 g/dL (28.0-37.0); MONOCYTES 5.9 %; MPV 7.4 fl. (7.2-11.1); NUCLEATED RBCS 0 /100WBC; PLATELET COUNT* 324 thou/uL (150-400); RBC 5.03 mil/uL (4.50-6.00); WBC 9.9 thou/uL (4.0-11.0)
[2021-02-13 16:53] LABS: ALBUMIN 3.9 g/dL (3.4-5.0); CALCIUM 9.5 mg/dL (8.5-10.1); CREATININE 1.3 mg/dL (0.6-1.3); POTASSIUM 4.4 mmol/L (3.5-5.1); TOTAL BILIRUBIN 0.4 mg/dL (<0.1-1.0); TOTAL PROTEIN 8.2 g/dL (6.4-8.2)
== END | disposition home or self-care (01) ==
LOC: M.LAB 16:09
PROVIDERS: ATTEND Registered Nurse
DX: I11.0 Hypertensive heart disease with heart failure (principal); I50.32 Chronic diastolic (congestive) heart failure; R07.9 Chest pain, unspecified; R06.00 Dyspnea, unspecified; I48.0 Paroxysmal atrial fibrillation

== ENCOUNTER → 2021-02-24 | Outpatient (CLI) | payer OTHER, MEDICARE ==
[~2021-02-24] MED LIST changes: +DOXYCYCLINE 10100 MG PO; +ENBREL50 MG/1 ML SUBQ
== END ==
LOC: M.PC 09:47
PROVIDERS: ATTEND Anesthesiology Pain Medicine
DX: G89.29 Other chronic pain (principal); M25.562 Pain in left knee; E66.01 Morbid (severe) obesity due to excess calories; M06.9 Rheumatoid arthritis, unspecified

== ENCOUNTER → 2021-03-26 | Outpatient (CLI) | payer OTHER, MEDICARE | LOC: M.PC 04:43 | PROVIDERS: ATTEND Anesthesiology Pain Medicine | DX: M25.552 Pain in left hip (principal); M25.562 Pain in left knee; E66.01 Morbid (severe) obesity due to excess calories; M06.9 Rheumatoid arthritis, unspecified; Z98.84 Bariatric surgery status; Z79.891 Long term (current) use of opiate analgesic; Z79.899 Other long term (current) drug therapy ==

== ENCOUNTER → 2021-04-23 | Outpatient (CLI) | payer OTHER, MEDICARE | LOC: M.PC 08:52 | PROVIDERS: ATTEND Anesthesiology Pain Medicine | DX: M54.12 Radiculopathy, cervical region (principal); N18.9 Chronic kidney disease, unspecified; I16.9 Hypertensive crisis, unspecified; Z88.1 Allergy status to other antibiotic agents; Z86.711 Personal history of pulmonary embolism ==

== ENCOUNTER → 2021-05-21 | Outpatient (CLI) | payer OTHER, MEDICARE | LOC: M.PC 06:19 | PROVIDERS: ATTEND Anesthesiology Pain Medicine | DX: G89.29 Other chronic pain (principal); M25.561 Pain in right knee; M25.552 Pain in left hip; J44.9 Chronic obstructive pulmonary disease, unspecified; G47.30 Sleep apnea, unspecified; M06.9 Rheumatoid arthritis, unspecified; I11.0 Hypertensive heart disease with heart failure; I50.9 Heart failure, unspecified; I25.2 Old myocardial infarction; I48.91 Unspecified atrial fibrillation; I25.10 Atherosclerotic heart disease of native coronary artery without angina pectoris; E66.01 Morbid (severe) obesity due to excess calories; Z98.890 Other specified postprocedural states; Z96.651 Presence of right artificial knee joint; Z88.8 Allergy status to other drugs, medicaments and biological substances; Z79.891 Long term (current) use of opiate analgesic; Z79.899 Other long term (current) drug therapy; Z87.19 Personal history of other diseases of the digestive system ==

== ENCOUNTER → 2021-06-18 | Outpatient (CLI) | payer OTHER, MEDICARE | LOC: M.PC 12:10 | PROVIDERS: ATTEND Physical Medicine & Rehabilitation | DX: M25.562 Pain in left knee (principal); M25.552 Pain in left hip; M06.9 Rheumatoid arthritis, unspecified; E66.01 Morbid (severe) obesity due to excess calories ==

== ENCOUNTER → 2021-07-16 | Outpatient (CLI) | payer OTHER, MEDICARE | LOC: M.PC 05:30 | PROVIDERS: ATTEND Anesthesiology Pain Medicine | DX: M25.562 Pain in left knee (principal); M25.552 Pain in left hip; G89.29 Other chronic pain; E66.9 Obesity, unspecified; M06.9 Rheumatoid arthritis, unspecified; Z96.652 Presence of left artificial knee joint; Z96.642 Presence of left artificial hip joint; Z79.899 Other long term (current) drug therapy ==

== ENCOUNTER → 2021-08-13 | Outpatient (CLI) | payer OTHER, MEDICARE | LOC: M.PC 06:11 | PROVIDERS: ATTEND Anesthesiology Pain Medicine | DX: M25.562 Pain in left knee (principal); M25.552 Pain in left hip; I11.0 Hypertensive heart disease with heart failure; I50.9 Heart failure, unspecified; I25.10 Atherosclerotic heart disease of native coronary artery without angina pectoris; G47.33 Obstructive sleep apnea (adult) (pediatric); E66.01 Morbid (severe) obesity due to excess calories; Z98.84 Bariatric surgery status; Z96.651 Presence of right artificial knee joint; Z96.642 Presence of left artificial hip joint; Z88.8 Allergy status to other drugs, medicaments and biological substances; Z79.82 Long term (current) use of aspirin; Z79.899 Other long term (current) drug therapy ==

== ENCOUNTER → 2021-09-08 | Outpatient (CLI) | payer OTHER, MEDICARE | LOC: M.PC 08:17 | PROVIDERS: ATTEND Anesthesiology Pain Medicine | DX: M25.552 Pain in left hip (principal); M25.562 Pain in left knee; K85.90 Acute pancreatitis without necrosis or infection, unspecified; K44.9 Diaphragmatic hernia without obstruction or gangrene; E66.01 Morbid (severe) obesity due to excess calories; M16.12 Unilateral primary osteoarthritis, left hip; J44.9 Chronic obstructive pulmonary disease, unspecified; G47.30 Sleep apnea, unspecified; M06.9 Rheumatoid arthritis, unspecified; E66.9 Obesity, unspecified; I11.0 Hypertensive heart disease with heart failure; I50.9 Heart failure, unspecified; I25.10 Atherosclerotic heart disease of native coronary artery without angina pectoris; I48.91 Unspecified atrial fibrillation; K46.9 Unspecified abdominal hernia without obstruction or gangrene; F17.200 Nicotine dependence, unspecified, uncomplicated; Z79.899 Other long term (current) drug therapy; Z96.652 Presence of left artificial knee joint; Z96.642 Presence of left artificial hip joint ==

== ENCOUNTER → 2021-11-12 | Outpatient (CLI) | payer OTHER, MEDICARE | LOC: M.PC 05:35 | PROVIDERS: ATTEND Anesthesiology Pain Medicine | DX: G89.29 Other chronic pain (principal); M22.40 Chondromalacia patellae, unspecified knee; M19.90 Unspecified osteoarthritis, unspecified site; J44.9 Chronic obstructive pulmonary disease, unspecified; E66.9 Obesity, unspecified; I10 Essential (primary) hypertension; I25.10 Atherosclerotic heart disease of native coronary artery without angina pectoris; K57.92 Diverticulitis of intestine, part unspecified, without perforation or abscess without bleeding; I48.91 Unspecified atrial fibrillation; K46.9 Unspecified abdominal hernia without obstruction or gangrene; F17.200 Nicotine dependence, unspecified, uncomplicated; Z79.82 Long term (current) use of aspirin; Z79.899 Other long term (current) drug therapy; Z79.891 Long term (current) use of opiate analgesic; Z88.8 Allergy status to other drugs, medicaments and biological substances ==